=== PATIENT | male | born 1950 | race Caucasian/White ===

== ENCOUNTER → 2023-12-25 08:58 | Outpatient (REF) | payer MEDICARE, SELFPAY ==
[2023-12-25 12:53] LABS: HDL Cholesterol 41 mg/dl; LDL Cholesterol, Calculated 51 mg/dl; Total Cholesterol 120 mg/dl (50-199); Triglyceride 140 mg/dl (10-149); Very Low Density Lipoprotein 28 mg/dl (0-30)
[2023-12-25 17:52] LABS: Microalbumin, Random Urine 7.5 mg/dl (0.6-1.7); Microalbumin/creatinine Ratio 87.5 mg/g
== END ==
LOC: HWLAB 08:58
PROVIDERS: ATTENDING PHYSICIAN Internal Medicine
DX: Z23 Encounter for immunization (principal); E11.3293 Type 2 diabetes mellitus with mild nonproliferative diabetic retinopathy without macular edema, bilateral; E11.42 Type 2 diabetes mellitus with diabetic polyneuropathy; I25.10 Atherosclerotic heart disease of native coronary artery without angina pectoris; Z95.5 Presence of coronary angioplasty implant and graft; I10 Essential (primary) hypertension; E78.2 Mixed hyperlipidemia; Z12.5 Encounter for screening for malignant neoplasm of prostate
CPT/HCPCS: 36415; 80061; 82043; 82570; 83036; G0103

== ENCOUNTER 2024-06-02 15:37 | Inpatient (IN) | payer MEDICARE, SELFPAY ==
[2024-06-02] VITALS (12 sets, daily range): BP systolic 102–136; BP diastolic 49–72; BMI 29.2; BMI 28.4
--- NOTE | 2024-06-02 11:54 | ED.GENMED ---
History of Present Illness
General
Chief Complaint: Abdominal Pain
Source: patient and spouse
Exam Limitations: none
Time Seen by Provider: 06/02/24 11:46
History of Present Illness
History of Present Illness:
74yoM with a history of coronary artery disease s/p PCI, hypertension, hyperlipidemia, and type 2 diabetes presenting with his for evaluation of chest and abdominal pain. Patient has been having intermittent right lower quadrant abdominal pain
for the past several weeks. He started to have pain in his right upper chest region several days ago. The pain seems to be worse at nighttime. Pain intermittently will radiate down the right side of his torso. Patient also reports decreased
appetite and early satiety. He has not been getting out of bed much due to his symptoms. He has lost about 20 pounds within the past month. No fevers, dysuria, diarrhea, shortness of breath.
Past History
Past History
ED Past Medical History: HTN, Hypercholesterolemia and NIDDM
ED Past Surgical History: Appendectomy, Orthopedic and Tonsilectomy
Social History
Tobacco: Non-smoker
Living: with family
Phy Exam
General Physical Exam
General Presentation: no apparent distress
General age: appears stated age
General Skin: warm and dry
General Mental: alert
Cardiovascular Exam
Cardiovascular Exam: regular rate/rhythm
Pulmonary Exam
Pulmonary Exam: lungs clear, no respiratory distress and no crackles
Gastrointestinal Exam
Gastrointestinal Exam: non tender, soft and non distended
Fritz Coma Scale
Eye Opening: Spontaneous
Verbal Response: Oriented
Motor Response: Obeys Commands
GCS Total Score: 15
Skin Exam
Skin Exam: normal color and warm/dry
Psychiatric Exam
Psychiatric Exam: normal mood/affect
Course
Orders/Labs/Results
Orders:
Orders
06/02/24 11:24
ECG [Electrocardiogram (*1)] Urgent
Reason for Study: Other
Other Reason for Exam: abdominal pain
EKG- Treatment ONCE
06/02/24 11:54
CT Chest/abd/pel W Iv Cont Urgent
Comment:
Reason For Exam: R sided chest/abd pain, weight loss
06/02/24 11:56
Complete Blood Count/With Diff Urgent
Comprehensive Metabolic Panel Urgent
Lipase Urgent
Troponin I Urgent
06/02/24 15:24
Admit/Transfer Patient As Directed
Co-Sign Provider:
Level of Care: Inpatient admission
Assign to:: Medical/Surgical
Physician / Group: yesenia
Diagnosis: pancreatic cancer
Reason for Hospitalization: pancreatic cancer
Expected length of stay greater than two midnights?: Yes
ELOS- Estimated Length of Stay in days: 2
I certify the patient meets the requirements for IP care: Yes
PRN Pain Medication Management As Directed
May give lesser potent ordered pain med per pt: Yes
preference::
Protocol:: Medication orders for pain may be administered in a
manner that supports deferring to patient preference
when the pt is:
- Requesting an ordered lesser potent pain medication.
Least to most potent pain medications are defined
as: acetaminophen < NSAID < tramadol < opioids
(morphine, oxycodone, hydromorphone).
- Requesting a lesser dose of the same medication IF
ORDERED.
- Requesting a less intrusive route of administration
if both routes are prescribed by the provider (PO <
IV).
06/02/24 15:25
Code Status As Directed
Resuscitation Status: Full Code
Abnormal Lab Results
06/02/24
11:56
MCHC 32.4 L g/dL
(33.0-37.0)
RDW 15.0 H %
(11.5-14.5)
Abs Immat Gran (auto) 0.1 H 10^3/uL
(0-0.05)
Absolute Neuts (auto) 7.7 H 10^3/uL
(1.4-6.5)
Absolute Monos (auto) 1.4 H 10^3/uL
(0.1-0.6)
Immature Gran % 0.6 H %
(0-0.5)
Lymphocytes % 12.5 L %
(20.5-51.1)
Monocytes % 13.3 H %
(1.7-9.3)
BUN 28 H mg/dl
(9-20)
Glucose 143 H mg/dl
(70-99)
Total Bilirubin 1.7 H mg/dl
(0.2-1.3)
AST 182 H U/L
(17-59)
ALT 143 H U/L
(0-50)
Alkaline Phosphatase 550 H U/L
(38-126)
06/02/24 11:56
06/02/24 11:56
Vital Signs
Initial and Last Documented VS:
Initial Vital Signs
Temp Pulse Resp BP Pulse Ox
97.6 F 79 18 107/62 98
06/02/24 11:18 06/02/24 11:18 06/02/24 11:18 06/02/24 11:18 06/02/24 11:18
Last Documented Vital Signs
Temp Pulse Resp BP Pulse Ox
97.6 F 67 19 118/63 96
06/02/24 11:18 06/02/24 14:12 06/02/24 14:12 06/02/24 14:12 06/02/24 14:12
MDM/Problems Addressed
Differential Diagnosis Includes:
74yoM here with R sided chest/abd pain. Also having decreased appetite, early satiety, and weight loss. He is afebrile and hemodynamically stable. He is well appearing in no distress. No reproducible abdominal tenderness on exam. Differential
diagnosis includes but is not limited to: malignancy, biliary colic, appendicitis, pneumonia
Initial ED plan: Check abdominal labs, troponin/EKG, and CT CAP.
*EKG
Interpreted by ED Provider?: Yes
EKG Intrepretation Date: 06/02/24
Heart Rate: 73
Rate: normal
Rhythm: sinus
[place]: normal axis
Interval: normal interval
QRS Pattern: normal QRS
Ischemia: no ischemia
*Critical Care Note
Total Time (30-74mins, 75-104mins- exclusive of procedures): Not Applicable
Update Note
Update Note:
Labs reveal a new transaminitis. CT unfortunately shows findings concerning for pancreatic cancer with liver metastases. There is also a splenic infarct noted. Oncology notified of patient and he was admitted for further evaluation and management.
ED Attending Note
-
Portions of this chart may have been created with voice recognition software.� Occasional wrong word or��sound alike� substitutions may have occurred due to the inherent limitations of voice recognition software.
Discharge Plan
Departure
Patient Disposition: Admit
Date of Disposition: 06/02/24
Time of Disposition: 15:13
Presentation/result/management discussed w/ accepting MD/DO: Hospitalist
Discharge Problem:
Pancreatic mass, Splenic infarct
Interventions
Interventions:
*Risk Screen - Suicide Last Done: 06/02/24 11:51
*General Assessment Last Done: 06/02/24 11:51
*Neglect/Abuse Screening Last Done: 06/02/24 11:51
ED- Fall Risk Assessment Last Done: 06/02/24 11:51
*ED COVID-19 Vaccine History Last Done: 06/02/24 11:51
CD-Zgtbyt-Bhnrwrjvlk Assessment Last Done: 06/02/24 11:51
[2024-06-02 12:16] LABS: % Basophils 0.6 % (0-2); % Eosinophils 1.8 % (0-6); % Immature Granulocytes 0.6 % (0-0.5); % Lymphocytes 12.5 % (20.5-51.1); % Monocytes 13.3 % (1.7-9.3); % Neutrophils 71.2 % (42.2-75.2); Absolute Basophils 0.1 10^3/uL (0-0.2); Absolute Eosinophils 0.2 10^3/uL (0-0.7); Absolute Immature Granulocytes 0.1 10^3/uL (0-0.05); Absolute Lymphocytes 1.4 10^3/uL (1.2-3.4); Absolute Monocytes 1.4 10^3/uL (0.1-0.6); Absolute Neutrophils 7.7 10^3/uL (1.4-6.5); Hematocrit 43.5 % (39.0-52.0); Hemoglobin 14.1 g/dL (13.0-18.0); Mean Corp Hgb Conc. 32.4 g/dL (33.0-37.0); Mean Corpuscular Hgb 28.1 pg (27.0-31.0); Mean Corpuscular Volume 86.8 fL (80.0-94.0); Mean Platelet Volume 9.3 fL (7.4-10.4); Nucleated Red Blood Cells % 0 % (-); Platelet Count 313 10^3/uL (130-400); Red Blood Cell Count 5.01 10^6/uL (4.70-6.10); White Blood Cell Count 10.8 10^3/uL (4.8-10.8)
[2024-06-02 12:24] LABS: ALT (SGPT) 143 U/L (0-50); AST (SGOT) 182 U/L (17-59); Albumin 3.6 g/dl (3.5-5.0); Alkaline Phosphatase 550 U/L (38-126); Blood Urea Nitrogen 28 mg/dl (9-20); Calcium 9.6 mg/dl (8.4-10.2); Carbon Dioxide 26 mmol/L (22-30); Chloride 101 mmol/L (98-107); Estimated Creatinine Clearance 67 ml/min; Glucose 143 mg/dl (70-99); Lipase 218 U/L (23-300); Potassium 4.4 mmol/L (3.5-5.1); Sodium 139 mmol/L (135-145); Total Bilirubin 1.7 mg/dl (0.2-1.3); Total Protein 6.6 g/dl (6.3-8.2); eGFR > 60.00
[2024-06-02 12:35] LABS: Troponin I < 0.012 ng/ml
--- NOTE | 2024-06-02 14:58 | EDRN ---
provider currently at the pts bedside speaking with the pt and the pts
--- NOTE | 2024-06-02 15:26 | HPS.HSE ---
Family Physician
-
Family Physician: Devendra Pitts
Chief Complaint
-
abdomen/chest pain
History of Present Illness
74-year-old male with past medical history of CAD status post PCI, hypertension, hyperlipidemia, type 2 diabetes, right staghorn renal calculus presenting for chest and abdominal pain. He has been having intermittent throbbing right lower quadrant
pain for several weeks and right upper chest pain for several weeks particularly worse at night. He has had decreased appetite, early satiety and 20 pounds weight loss in a month. He denies any pain currently. Denies any fevers or chills. Denies
any shortness of breath.
He drinks alcohol very rarely. He never smoked.
His father had lung cancer.
Medical History
Past Medical History
Past Medical History: Reports Other (CAD status post PCI, hypertension, hyperlipidemia, type 2 diabetes, right staghorn renal calculus )
Past Surgical History: Reports None
Social History
Tobacco: Non-smoker
Alcohol: Occasional
Drug: None
Family History
Family History: Not pertinent
Allergies / Home Medications
Allergies reflects when Allergies were last updated in [employer].
Home Medications with original date entered in [employer]
Allergy/Medication List:
Allergies
Allergy/AdvReac Type Severity Reaction Status Date / Time
TONNY Inhibitors Allergy Cough Verified 06/02/24 11:22
Home Medications
finasteride 5 mg tablet 5 mg PO DAILY 04/02/14
multivitamin with minerals-ferrous sulfate 4.5 mg iron tablet (One Daily Multivitamins with Minerals) 1 tab PO DAILY 04/02/14
simvastatin 20 mg tablet 20 mg PO DAILY 04/02/14
sitagliptin phosphate 100 mg tablet (Januvia) 100 mg PO DAILY 04/02/14
tamsulosin 0.4 mg capsule 0.4 mg PO DAILY 04/02/14
aspirin 81 mg tablet,delayed release 81 mg PO DAILY #0 tabs 04/04/14
metformin 1,000 mg tablet 1,000 mg PO BID ##0 04/04/14
metoprolol tartrate 25 mg tablet 25 mg PO BID ##180 04/04/14
nitroglycerin 0.4 mg sublingual tablet 0.4 mg sublingual [id number] PRN chest pain #30 tabs 04/04/14
ticagrelor 90 mg tablet (Brilinta) 90 mg PO BID ##60 04/04/14
insulin lispro 100 unit/mL subcutaneous pen (Humalog KwikPen (U-100) Insulin) 8 units SC AC 06/25/18
tramadol 50 mg tablet 50 mg PO [id number] PRN severe pain #21 tabs 07/02/18
Review of Systems
-
History Source: Patient
A 12 point ROS was completed and negative except as noted: Yes
Constitutional: Reports No Symptoms
EENT: Reports No Symptoms
Respiratory: Reports No Symptoms
Cardiac: Reports No Symptoms
Abdomen/GI: Reports No Symptoms
: Reports No Symptoms
Musculoskeletal: Reports No Symptoms
Skin: Reports No Symptoms
Neurological: Reports No Symptoms
Endocrine: Reports No Symptoms
Hematologic/Lymphatic: Reports No Symptoms
Psych: Reports No Symptoms
Physical Exam
Vital Signs
Vital Signs
Temp Pulse Resp BP Pulse Ox
97.6 F 67 19 118/63 96
06/02/24 11:18 06/02/24 14:12 06/02/24 14:12 06/02/24 14:12 06/02/24 14:12
Physical Exam
General: Well Developed, Well Nourished and No Apparent Distress
HEENT: NormoCephalic, Moist mucous membranes and Atraumatic
Respiratory: Clear
Cardiac: S1/S2 and Regular Rhythm; No Murmur or Rub
GI: Soft, Non Tender, Non Distended and Normal Bowel Sounds; No Organomegaly
Rectal: Deferred by Provider
Musculoskeletal: No Clubbing, No Cyanosis and No Edema
Skin: No Rash
Neuro: Nonfocal/grossly intact
Laboratory Results
-
06/02/24 11:56
06/02/24 11:56
Laboratory Results
Total Bilirubin 1.7 mg/dl (0.2-1.3) H 06/02/24 11:56
AST 182 U/L (17-59) H 06/02/24 11:56
ALT 143 U/L (0-50) H 06/02/24 11:56
Alkaline Phosphatase 550 U/L (38-126) H 06/02/24 11:56
Troponin I < 0.012 ng/ml 06/02/24 11:56
Lipase 218 U/L (23-300) 06/02/24 11:56
Data Reviewed
-
Lab Data: Labs Reviewed by me
Old Records: Reviewed
Impression/Plan
-
IMPRESSION:
PLAN:
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
# Transaminitis
# Splenic infarct
-Will likely require IR biopsy
-Oncology consulted
CAD status post stents 10 years ago
-Continue aspirin
-Brilinta was recently stopped
Essential hypertension
-Continue metoprolol
Type 2 diabetes
-Hold metformin, Januvia
-Insulin sliding scale
Hyperlipidemia
-Continue statin
History of right staghorn renal calculus
BPH
-Continue tamsulosin, finasteride
Full code
DVT prophylaxis�heparin
Regular diet
--- NOTE | 2024-06-02 17:53 | EDRN ---
this RN called the receiving unit and notified them that paper report was going to be tubed up
[2024-06-02] MEDS: LOPRESSOR 25 MG PO (19:41)
[2024-06-02] MEDS: HEPARIN 5000 UNITS SC (19:41)
[2024-06-02] MEDS: LIPITOR 40 MG PO (21:30)
[2024-06-02 22:13] LABS: Glucose - Point of Care 163 mg/dl (70-99)
[2024-06-03 05:43] LABS: % Basophils 0.7 % (0-2); % Eosinophils 2.6 % (0-6); % Immature Granulocytes 0.4 % (0-0.5); % Lymphocytes 14.1 % (20.5-51.1); % Monocytes 13.3 % (1.7-9.3); % Neutrophils 68.9 % (42.2-75.2); Absolute Basophils 0.1 10^3/uL (0-0.2); Absolute Eosinophils 0.2 10^3/uL (0-0.7); Absolute Lymphocytes 1.2 10^3/uL (1.2-3.4); Absolute Monocytes 1.1 10^3/uL (0.1-0.6); Absolute Neutrophils 5.8 10^3/uL (1.4-6.5); Hematocrit 41.4 % (39.0-52.0); Hemoglobin 13.8 g/dL (13.0-18.0); Mean Corp Hgb Conc. 33.3 g/dL (33.0-37.0); Mean Corpuscular Hgb 28.7 pg (27.0-31.0); Mean Corpuscular Volume 86.1 fL (80.0-94.0); Mean Platelet Volume 9.5 fL (7.4-10.4); Nucleated Red Blood Cells % 0 % (-); Platelet Count 285 10^3/uL (130-400); Red Blood Cell Count 4.81 10^6/uL (4.70-6.10); Red Cell Dist. Width 14.7 % (11.5-14.5); White Blood Cell Count 8.4 10^3/uL (4.8-10.8)
[2024-06-03 06:02] LABS: ALT (SGPT) 156 U/L (0-50); AST (SGOT) 181 U/L (17-59); Albumin 3.4 g/dl (3.5-5.0); Alkaline Phosphatase 594 U/L (38-126); Blood Urea Nitrogen 27 mg/dl (9-20); Calcium 9.8 mg/dl (8.4-10.2); Carbon Dioxide 24 mmol/L (22-30); Chloride 102 mmol/L (98-107); Estimated Creatinine Clearance 67 ml/min; Glucose 142 mg/dl (70-99); Potassium 4.9 mmol/L (3.5-5.1); Sodium 143 mmol/L (135-145); Total Bilirubin 1.8 mg/dl (0.2-1.3); Total Protein 6.5 g/dl (6.3-8.2); eGFR > 60.00
[2024-06-03 07:00] VITALS: BP 108/64
[2024-06-03 07:40] LABS: Glucose - Point of Care 148 mg/dl (70-99)
[2024-06-03] MEDS: COZAAR 25 MG PO (08:19)
[2024-06-03] MEDS: LOPRESSOR 25 MG PO ×2 (08:19→20:37)
[2024-06-03] MEDS: THERAGRAN 1 TABLET PO (08:19)
[2024-06-03] MEDS: ASPIR LOW (ENTERIC COATED) 81 MG PO (08:19)
[2024-06-03] MEDS: NOVOLOG FLEXPEN-LOW RESISTANCE SC (08:19)
[2024-06-03] MEDS: HEPARIN 5000 UNITS SC ×2 (08:19→20:38)
[2024-06-03 09:28] LABS: Glycohemoglobin (HgbA1c) 7.2 % (4.0-5.6)
--- NOTE | 2024-06-03 09:35 | W.PN.HOSP.TC ---
Today's Communication/Plan
-
Oncology consult
IRAD consult
GI consult
Assessment / Plan
Assessment / Plan
Gen-AAOx3, NAD
HEENT-NC, AT, anicteric, clear oral mm
Neck-supple
CV-reg, no M, +S1/S2
Lungs-clear B/L
Abd-soft, NT, ND
Ext-no edema
Musculoskeletal-no cyanosis, clubbing
Skin-warm and dry
Neuro-grossly non-focal
Psych-calm, cooperative
Pancreatic mass -CT scan confirms a mass in the pancreatic tail (4.2x3.4x2.5cm) with multiple hepatic lesions concerning for metastatic pancreatic cancer. Splenic infarct noted.
Will need diagnostic biopsy. Await oncology input. He already had breakfast. This is a new diagnosis for him.
IRAD consult for biopsy.
CT also mentions intrahepatic ductal dilation in the right lobe of the liver, possibly due to intrahepatic obstruction. GI will be consulted. Elevated bilirubin, transaminases, alkaline phosphatase noted.
CAD -with history of stenting. Continue medical therapy.
Essential hypertension -stable.
DM2 without hyperglycemia - on Lantus 25 units BID, Humalog 15 units AC, metformin 1000 mg twice daily, Jardiance 25 mg daily at home. Glucose 142 this morning. Hemoglobin A1c 7.2%.
Currently in the hospital he is getting glargine 25 units twice daily and aspart low resistance corrective scale.
Hyperlipidemia -atorvastatin.
History of staghorn nephrolithiasis
BPH
full code
Anticipated Discharge: > 48 hours
Subjective/Interval History
-
Date of Service: June 03, 2024
Patient seen and examined. Complaining of right lateral chest pain.
Objective Data
-
Labs:
Laboratory Results
06/03/24
04:56
WBC 8.4
Hgb 13.8
Hct 41.4
Plt Count 285
Sodium 143
Potassium 4.9
Chloride 102
Carbon Dioxide 24
BUN 27 H
Creatinine 1.0
Glucose 142 H
Calcium 9.8
Total Bilirubin 1.8 H
AST 181 H
ALT 156 H
Alkaline Phosphatase 594 H
Vital Signs:
Vital Signs
Temp Pulse Resp BP Pulse Ox
98.0 F 70 18 108/64 97
06/03/24 07:00 06/03/24 07:00 06/03/24 07:00 06/03/24 07:00 06/03/24 07:00
I&O
06/02/24 06/03/24 06/04/24
06:59 06:59 06:59
Intake Total 480 / 480
Balance 480 / 480
Review of Systems
-
History Source: Patient
All other systems: Reviewed and negative
--- NOTE | 2024-06-03 10:01 | CON.ONC ---
Documented by User: Marcos De La Rosa DO, Resident 06/03/24 11:37
Impression
Impression
74-year-old male with newfound pancreatic tail mass and potential metastatic lesions in the liver.
Plan
Plan
Newfound pancreatic tail mass and hepatic lesions on CT. Pending GI/ IR consult and biopsy. Input appreciated
CEA, CA 19-9 pending
Consideration of DC if patient has workup appointments confirmed for staging
Follow up outpatient with oncology once path is back
Continue management per primary medical team
Patient History
History of Present Illness
74-year-old male with past medical history of CAD post PCI, hypertension, hyperlipidemia, type 2 diabetes and right staghorn renal calculus, now presenting with newfound pancreatic tail mass after having chest/abdominal pain, worse at night,
decreased appetite and 20 pound weight loss in last month. CT abdomen pelvis on 06/02 shows mass in the pancreatic tail (4.2x3.4x2.5cm) and multiple hepatic lesions, concerning for metastatic pancreatic cancer. Patient also has intrahepatic ductal
dilation in the right lobe of the liver, possibly due to intrahepatic obstruction.
Today patient reports no pain at the moment. He states he continues to have reduced appetite and weight loss. He notes no chest pain, nausea, vomiting, constipation, blood in stool or difficulty with having a bowel movement or urinating. He has
no personal history of cancer. Patient was on Brilinta, discontinued 3 days ago per PCP. Discussions had today regarding next steps pending staging and biopsy results.
Past-Medical/Surgical History
CAD status post PCI, hypertension, hyperlipidemia, type 2 diabetes, right staghorn renal calculus
Patient Medication
�Medication �Instructions �Recorded �Confirmed �Last Taken �Type
finasteride 5 mg tablet 5 mg PO QPM urinary issue 04/02/14 06/02/24 06/01/24 History
10 mg
multivitamin with minerals-ferrous 1 tab PO DAILY supplement 04/02/14 06/02/24 06/01/24 History
sulfate 4.5 mg iron tablet (One
Daily Multivitamins with Minerals)
tamsulosin 0.4 mg capsule 0.4 mg PO QPM urinary issue 04/02/14 06/02/24 06/01/24 History
0.8mg
nitroglycerin 0.4 mg sublingual 0.4 mg sublingual [id number] PRN 04/04/14 06/02/24 Unknown Rx
tablet chest pain #30 tabs
insulin lispro 100 unit/mL 15 units SC AC diabetes 06/25/18 06/02/24 06/02/24 History
subcutaneous pen (Humalog KwikPen
(U-100) Insulin)
aspirin 81 mg tablet,delayed 81 mg PO DAILY Blood Clot 06/02/24 06/02/24 06/02/24 History
release Prevention/Tx
atorvastatin 40 mg tablet (Lipitor) 40 mg PO HS High Cholesterol 06/02/24 06/02/24 06/01/24 History
empagliflozin 25 mg tablet 25 mg PO DAILY diabetes 06/02/24 06/02/24 06/01/24 History
(Jardiance) 50 mg
insulin glargine 100 unit/mL 25 unit SC BID@1200,1900 diabetes 06/02/24 06/02/24 06/01/24 History
subcutaneous solution (Lantus
U-100 Insulin)
losartan 25 mg tablet 25 mg PO DAILY Blood Pressure 06/02/24 06/02/24 06/01/24 History
50 mg
metformin 1,000 mg tablet 1,000 mg PO BID diabetes 06/02/24 06/02/24 06/02/24 History
metoprolol tartrate 25 mg tablet 25 mg PO BID blood pressure 06/02/24 06/02/24 06/02/24 History
Active Medications
Generic Name Dose Route Start Last Admin
Trade Name Freq PRN Reason Stop Dose Admin
Aspirin 81 mg 06/03/24 08:00 06/03/24 08:19
Aspirin 81 Mg (Enteric Coated) Tablet PO 07/01/24 07:59 81 mg
DAILY CLARI Administration
Atorvastatin Calcium 40 mg 06/02/24 22:00 06/02/24 21:30
Atorvastatin (Lipitor) 40 Mg Tablet PO 06/30/24 21:59 40 mg
HS CLARI Administration
Dextrose 12.5 grams 06/02/24 19:04
Dextrose 50% (0.5 Grams/Ml) 50 Ml Syringe IV 06/30/24 19:03
[id number] PRN
hypoglycemia
Protocol
Finasteride 5 mg 06/03/24 18:00
Finasteride 5 Mg Tablet PO 07/01/24 17:59
QPM CLARI
Glucagon 1 mg 06/02/24 19:04
Glucagon 1 Mg Vial IM 06/30/24 19:03
PRN PRN
hypoglycemia
Protocol
Heparin Sodium 5,000 units 06/02/24 20:00 06/03/24 08:19
Heparin 5,000 Units/Ml 1 Ml Vial SC 06/30/24 19:59 5,000 units
Q12 CLARI Administration
Insulin Glargine 25 units/ 0.25 mls @ 0 mls/hr 06/03/24 12:00
Device SC 07/01/24 11:59
BID@1200,1900 CLARI
As Directed
Insulin Aspart 0 units 06/03/24 07:30 06/03/24 08:19
Insulin Aspart Low Resistance 300 Units/3 Ml Pen.Injctr SC 07/01/24 07:29 Not Given
AC CLARI
Protocol
Losartan Potassium 25 mg 06/03/24 08:00 06/03/24 08:19
Losartan 25 Mg Tablet PO 07/01/24 07:59 25 mg
DAILY CLARI Administration
Metoprolol Tartrate 25 mg 06/02/24 20:00 06/03/24 08:19
Metoprolol 25 Mg Regular Release Tablet PO 06/30/24 19:59 25 mg
BID CLARI Administration
Multivitamins Therapeutic 1 tablet 06/03/24 08:00 06/03/24 08:19
Multivitamin Tablet PO 07/01/24 07:59 1 tablet
DAILY CLARI Administration
Nitroglycerin 0.4 mg 06/02/24 19:03
Nitroglycerin 0.4 Mg Sl Tablet SL 06/30/24 19:02
[id number] PRN
chest pain
Sodium Chloride 0 flush 06/02/24 19:00
Sodium Chloride 0.9% (Flush) Syringe IV 06/30/24 18:59
PER PROTOCOL LCARI
Tamsulosin HCl 0.4 mg 06/03/24 18:00
Tamsulosin 0.4 Mg Capsule PO 07/01/24 17:59
QPM CLARI
Review of Systems
-
History Source: Patient
Constitutional: Reports Weight Loss and No Appetite
EENT: Reports No Symptoms
Respiratory: Reports No Symptoms
GI: Reports Abdominal Pain
: Reports No Symptoms
Neuro: Reports No Symptoms
Psych: Reports No Symptoms
Physical Exam
-
General: Well Developed, Well Nourished, No Apparent Distress, Comfortable and Conversant
HEENT: Jaundice
Pulmonary: Clear
GI: Soft
Musculoskeletal: No Clubbing, No Cyanosis and No Edema
Skin: Warm and Dry
Psych: Calm
Labs
Lab Results
WBC 8.4 10^3/uL (4.8-10.8) 06/03/24 04:56
RBC 4.81 10^6/uL (4.70-6.10) 06/03/24 04:56
Hgb 13.8 g/dL (13.0-18.0) 06/03/24 04:56
Hct 41.4 % (39.0-52.0) 06/03/24 04:56
MCV 86.1 fL (80.0-94.0) 06/03/24 04:56
MCH 28.7 pg (27.0-31.0) 06/03/24 04:56
MCHC 33.3 g/dL (33.0-37.0) 06/03/24 04:56
RDW 14.7 % (11.5-14.5) H 06/03/24 04:56
Plt Count 285 10^3/uL (130-400) 06/03/24 04:56
MPV 9.5 fL (7.4-10.4) 06/03/24 04:56
Abs Immat Gran (auto) 0.0 10^3/uL (0-0.05) 06/03/24 04:56
Absolute Neuts (auto) 5.8 10^3/uL (1.4-6.5) 06/03/24 04:56
Absolute Lymphs (auto) 1.2 10^3/uL (1.2-3.4) 06/03/24 04:56
Absolute Monos (auto) 1.1 10^3/uL (0.1-0.6) H 06/03/24 04:56
Absolute Eos (auto) 0.2 10^3/uL (0-0.7) 06/03/24 04:56
Absolute Basos (auto) 0.1 10^3/uL (0-0.2) 06/03/24 04:56
Immature Gran % 0.4 % (0-0.5) 06/03/24 04:56
Neutrophils % 68.9 % (42.2-75.2) 06/03/24 04:56
Lymphocytes % 14.1 % (20.5-51.1) L 06/03/24 04:56
Monocytes % 13.3 % (1.7-9.3) H 06/03/24 04:56
Eosinophils % 2.6 % (0-6) 06/03/24 04:56
Basophils % 0.7 % (0-2) 06/03/24 04:56
Creatinine 1.0 mg/dL (0.7-1.3) 06/03/24 04:56
Vital Signs
Vital Signs
Temp Pulse Resp BP Pulse Ox
98.0 F 70 18 108/64 97
06/03/24 07:00 06/03/24 07:00 06/03/24 07:00 06/03/24 07:00 06/03/24 07:00

Documented by User: Brodie Obrien MD 06/03/24 13:39
Plan
Plan
Newfound pancreatic tail mass and hepatic lesions on CT. Pending GI/ IR consult and biopsy. Input appreciated
CEA, CA 19-9 pending
Consideration of DC if patient has workup appointments confirmed for staging
Follow up outpatient with oncology once path is back
Continue management per primary medical team
Oncology Addendum:
Patient seen and evaluated and agree w/ director medical writing note and plan
-pancreatic mass/ liver lesions/ portocaval serina enlargement - concerning for possible primary pancreaticobiliary malignancy
-for IR guided biopsy of liver lesion - await pathology
-GI following - MRCP ordered
-Ca 19-9 and CEA pending
Will continue to follow with you.
--- NOTE | 2024-06-03 10:10 | CON.GI ---
Addendum entered and electronically signed by Michaela Meza DO 06/03/24 12:31:
The patient was seen and examined by me independently in collaboration with the nurse practitioner.
Past medical history/social history/medications/allergies/family history reviewed.
Lab data and imaging data reviewed.
Sridhar is a 74-year-old male with past medical history of CAD status post PCI, hypertension, hyperlipidemia, diabetes, history of nephrolithiasis admitted with complaints of chest and abdominal pain and an unintentional weight loss of 20 pounds in
the last month. CT abdomen pelvis were obtained upon arrival which demonstrates a 4.2 cm likely malignant mass arising from the tail of the pancreas concerning for pancreatic adenocarcinoma and numerous low-density hepatic lesions throughout the
liver, concerning for metastatic disease. There is intrahepatic ductal dilatation within the right lobe of the liver, which is probably due to intrahepatic obstruction from the largest lesion. The main portal vein and its branches appear patent as
well as the SMV and splenic vein. The hepatic veins are not well-visualized. Top normal lymph nodes in the portacaval region, nonspecific. Small lymph nodes in the region of the gastrohepatic ligament, also nonspecific. A likely benign 2 mm
well-defined peripheral pulmonary nodule.
LFTs: Tbili 1.8, AST 181, ALT 156, Alk phos 594
#New pancreatic mass c/f pancreatic adenocarcinoma w/ hepatic mass
-elevated LFTs-- likely 2/2 intrahepatic cholestasis and obstrutrution of the intrahepatic duct 2/2 largest lesion
-IR also consulted
-recommend MRI/MRCP, tumor markers
-he is not cholangitic requiring urgent decompression nor is his bili too high for potential chemotherapy treatment, but still needs tissue diagnosis
-extensive discussion with patient, patient's , Dr. Bowen and IR-- earliest we are able to perform any procedure is on thursday, as an inpatient with IR. Patient is agreeable to this.
GI will sign off, please call with questions.
Original Note:
Consultation
-
Date/Time Consultation Requested: 06/03/24 4922
Date/Time Consultation Performed: 06/03/24 1015
Requesting Provider: Lawson Marquez DO
Performing Provider: RONNIE James, Elena Meza DO
Reason for Consultation: biliary dilation
Medical History
Chief Complaint / HPI
Chief Complaint: abdominal pain, wt loss
History of Present Illness:
Pt is a 74yo present with hx CAD with prior PCI on Brilinta til 3 weeks ago, HTN, hyperlipidemia, basal cell, melanoma, bladder CA, CVA, DM Type 2, right staghorn renal calculus appe with onset of chest and abdominal pain. He also admits to weight
loss 20 lbs with early satiety last 1-2 months. He describe pain as ache in right sided abdomen that is throbbing. On admission noted with bili 1.7, AST 182, ALT 143, alkphos 550, and Lipase 218. Ct with multiple finding with mass in pancreatic
tail concern for panc adeno CA, multiple hepatic lesions, intrahepatic duct dilation due to lesion right lobe, top normal nodes, renal stone, 2 mm pulm nodule, benign vs metastatic and splenic infarct. Asked to eval for EUS.
At this time patient denies dysphagia, odynophagia, GERD, nausea, vomiting, diarrhea, constipation, blood or black in stools. Hx colonoscopy [address] Dang erythema/erosion in cecum, polyps and hemorrhoids. bx mild acute inflammation,
adenomatous polyps. -- has 2 other colonoscopy
Past Medical History
Past Medical History: CAD, Cancer (basal cell skin CA, bladder CA, melanoma), CVA, HTN, Hypercholesterolemia, NIDDM and Other (right staghorn renal calculus, adenomatous colon polyps with removal of large polyp [place] last 1-2 years )
Past Surgical History: Appendectomy, Cardiac (PCI), Orthopedic (stem cell to right knee ), Tonsilectomy and Urological (TURBT 2011 )
Social History
Tobacco: Non-Smoker
Alcohol: Occasional (rare)
Drug: None
Personal:
Living: With Family
Employment: Retired
Family History
Family History: Other (no family hx colon CA/polyps, no family hx pancreatic or liver issues, father and mother lung CA)
Allergies / Home Medications
Allergy/AdvReac Type Severity Reaction Status Date / Time
TONNY Inhibitors Allergy Cough Verified 06/02/24 11:22
�Medication �Instructions �Recorded
finasteride 5 mg tablet 5 mg PO QPM urinary issue 04/02/14
multivitamin with minerals-ferrous 1 tab PO DAILY supplement 04/02/14
sulfate 4.5 mg iron tablet (One
Daily Multivitamins with Minerals)
tamsulosin 0.4 mg capsule 0.4 mg PO QPM urinary issue 04/02/14
nitroglycerin 0.4 mg sublingual 0.4 mg sublingual [id number] PRN 04/04/14
tablet chest pain #30 tabs
insulin lispro 100 unit/mL 15 units SC AC diabetes 06/25/18
subcutaneous pen (Humalog KwikPen
(U-100) Insulin)
aspirin 81 mg tablet,delayed 81 mg PO DAILY Blood Clot 06/02/24
release Prevention/Tx
atorvastatin 40 mg tablet (Lipitor) 40 mg PO HS High Cholesterol 06/02/24
empagliflozin 25 mg tablet 25 mg PO DAILY diabetes 06/02/24
(Jardiance)
insulin glargine 100 unit/mL 25 unit SC BID@1200,1900 diabetes 06/02/24
subcutaneous solution (Lantus
U-100 Insulin)
losartan 25 mg tablet 25 mg PO DAILY Blood Pressure 06/02/24
metformin 1,000 mg tablet 1,000 mg PO BID diabetes 06/02/24
metoprolol tartrate 25 mg tablet 25 mg PO BID blood pressure 06/02/24
Review of Systems
-
History Source: Patient
Constitutional: Reports Weight Loss (20 lbs )
EENT: Reports No Symptoms
Respiratory: Reports No Symptoms
Cardiac: Reports No Symptoms
Abdomen/GI: Reports Abdominal Pain and Other (early satiety )
: Reports No Symptoms
Musculoskeletal: Reports No Symptoms
Skin: Reports No Symptoms
Neurological: Reports Weakness
Endocrine: Reports No Symptoms
Hematologic/Lymphatic: Reports No Symptoms
Vital Signs
Temp Pulse Resp BP Pulse Ox
98.0 F 70 18 108/64 97
06/03/24 07:00 06/03/24 07:00 06/03/24 07:00 06/03/24 07:00 06/03/24 07:00
Physical Exam
Exam
General: Well Developed, Well Nourished and No Apparent Distress
HEENT: Normocephalic and Anicteric
Respiratory: Clear
Cardiac: Regular Rhythm
GI: Soft, Non Tender and Non Distended
Musculoskeletal: No Clubbing and No Cyanosis
Skin: Warm and Dry
Neuro: Awake, Alert and AO x 3
Psych: Calm
Results
WBC 8.4 10^3/uL (4.8-10.8) 06/03/24 04:56
Hgb 13.8 g/dL (13.0-18.0) 06/03/24 04:56
Hct 41.4 % (39.0-52.0) 06/03/24 04:56
MCV 86.1 fL (80.0-94.0) 06/03/24 04:56
Plt Count 285 10^3/uL (130-400) 06/03/24 04:56
Absolute Neuts (auto) 5.8 10^3/uL (1.4-6.5) 06/03/24 04:56
Sodium 143 mmol/L (135-145) 06/03/24 04:56
Potassium 4.9 mmol/L (3.5-5.1) 06/03/24 04:56
Chloride 102 mmol/L (98-107) 06/03/24 04:56
Carbon Dioxide 24 mmol/L (22-30) 06/03/24 04:56
BUN 27 mg/dl (9-20) H 06/03/24 04:56
Creatinine 1.0 mg/dL (0.7-1.3) 06/03/24 04:56
Calcium 9.8 mg/dl (8.4-10.2) 06/03/24 04:56
Total Bilirubin 1.8 mg/dl (0.2-1.3) H 06/03/24 04:56
AST 181 U/L (17-59) H 06/03/24 04:56
ALT 156 U/L (0-50) H 06/03/24 04:56
Alkaline Phosphatase 594 U/L (38-126) H 06/03/24 04:56
Lipase 218 U/L (23-300) 06/02/24 11:56
Diagnostic Image Results:
CT Chest/abd/pel W Iv Cont
IMPRESSION: A mass arises in the pancreatic tail, which very likely represents pancreatic adenocarcinoma.
Multiple hepatic lesions which very likely represent hepatic metastatic disease. There is probably intrahepatic bile duct dilation due to a lesion within the right lobe.
Top normal size lymph nodes in the portacaval region, with prominent but not enlarged lymph nodes in the gastrohepatic ligament. These are nonspecific, statistically probably slightly more likely to be inflammatory rather than neoplastic.
2 mm nephrolith within the lower pole of the right kidney.
2 mm well-defined peripheral pulmonary nodule in the lateral aspect of the left upper lobe as described. This is most likely a benign pulmonary nodule, although a small metastatic lesion is also possible. Continued follow-up advised.
Splenic infarct, seen as a wedge-shaped region of decreased enhancement on portal venous phase images.
Dense coronary artery calcifications. Please correlate with symptoms of and risk factors for coronary artery disease, with further workup as clinically appropriate.
Trace amount of posterior right pleural fluid.
Prior GI Procedures:
EGD:none
Colonoscopy: Hx colonoscopy [address] Dang erythema/erosion in cecum, polyps and hemorrhoids. bx mild acute inflammation, adenomatous polyps.
colonoscopy x 2 [facility] last 1 1/2 year with polyps and returned for removal of large polyp
Assessment / Plan
-
Pt is a 74yo present with hx CAD with prior PCI on Brilinta til 3 weeks ago, HTN, hyperlipidemia, DM Type 2, basal cell, melanoma, bladder CA, right staghorn renal calculus, appe with onset of chest and abdominal pain. He also admits to weight loss
20 lbs with early satiety last 1-2 months. He describe pain as ache in right sided abdomen that is throbbing. On admission noted with bili 1.7, AST 182, ALT 143, alkphos 550, and Lipase 218. Ct with multiple finding with mass in pancreatic tail
concern for panc adeno CA, multiple hepatic lesions, intrahepatic duct dilation due to lesion right lobe, top normal nodes, renal stone, 2 mm pulm nodule, benign vs metastatic and splenic infarct. Asked to eval for EUS.
-wt loss/early satiety/abdominal pain
-Ct concerning for pancreatic adeno CA with mets
-CAD with prior PCI with Brilinta last 3 weeks ago
-increased LFT's
-forgetfulness in exam
other med problems:
-hx colon polyp including large polyp resected last 1-2 years at [facility]
-DM
-basal cell ca
-melanoma
-bladder CA- TURBT 2011
- right staghorn renal calculus
-appe
-BPH
PLAN:etiology of wt loss, pain and early satiety with concern for metastatic disease
I reviewed imaging with Dr. Bowen would be best for liver biopsy first
will review with IR for timing unable to do today --IP vs OP
await oncology input
will check MRI with MRCP to further define anatomy
add AFP, Ca19-9, CEA and INR
remains on ADA diet
last Brilinta 3 weeks ago
-
-
Thank you for consultation and allowing me to participate in the patient's care. Please call the workers' compensation hearings officer GI physician during the after hours with any questions or concerns.
[2024-06-03 12:10] LABS: Glucose - Point of Care 190 mg/dl (70-99)
[2024-06-03 12:33] LABS: INR 1.18; PT 14.9 Sec (11.4-14.6)
--- NOTE | 2024-06-03 12:47 | CM ---
Patient seen bedside with , initial assessment completed. Patient resides with in a ranch style home, one step to enter through [facility]. Patient denies DME, reports VN and outpatient PT in the past (2018). Patient confirms PCP Devendra Pitts,
pharmacy [facility] in [place], confirms prescription coverage. Patient denies any needs from CM at this time. CM will continue to follow for all discharge planning needs.
Plan; home no needs likely.
[2024-06-03 13:08] LABS: CEA 62.8 ng/ml
[2024-06-03] MEDS: NOVOLOG FLEXPEN-LOW RESISTANCE 1 UNITS SC (13:17)
[2024-06-03] MEDS: LANTUS 0.25 UNITS SC ×2 (13:18→20:38)
[2024-06-03 14:00] LABS: AFP Male/Tumor Marker 1.37 ng/ml
[2024-06-03 14:50] VITALS: BMI 28.4
[2024-06-03 16:12] VITALS: BP 132/72
[2024-06-03 16:12] LABS: Glucose - Point of Care 202 mg/dl (70-99)
[2024-06-03] MEDS: FLOMAX 0.4 MG PO (17:10)
[2024-06-03] MEDS: PROSCAR 5 MG PO (17:10)
[2024-06-03] MEDS: NOVOLOG FLEXPEN-LOW RESISTANCE 2 UNITS SC (17:10)
[2024-06-03] MEDS: LIPITOR 40 MG PO (20:36)
[2024-06-03 23:00] VITALS: BP 119/68
[2024-06-03 23:26] LABS: Glucose - Point of Care 176 mg/dl (70-99)
[2024-06-04 06:17] LABS: ALT (SGPT) 155 U/L (0-50); AST (SGOT) 181 U/L (17-59); Albumin 3.3 g/dl (3.5-5.0); Alkaline Phosphatase 599 U/L (38-126); Blood Urea Nitrogen 27 mg/dl (9-20); Calcium 9.6 mg/dl (8.4-10.2); Carbon Dioxide 26 mmol/L (22-30); Chloride 103 mmol/L (98-107); Estimated Creatinine Clearance 61 ml/min; Glucose 150 mg/dl (70-99); Potassium 4.8 mmol/L (3.5-5.1); Sodium 142 mmol/L (135-145); Total Bilirubin 1.7 mg/dl (0.2-1.3); Total Protein 6.3 g/dl (6.3-8.2); eGFR > 60.00
[2024-06-04 07:00] VITALS: BP 125/63
[2024-06-04 07:44] LABS: Glucose - Point of Care 134 mg/dl (70-99)
[2024-06-04] MEDS: NOVOLOG FLEXPEN-LOW RESISTANCE SC ×2 (08:14→14:15)
[2024-06-04] MEDS: ASPIR LOW (ENTERIC COATED) 81 MG PO (08:43)
[2024-06-04] MEDS: LOPRESSOR 25 MG PO ×2 (08:43→21:46)
[2024-06-04] MEDS: COZAAR 25 MG PO (08:43)
[2024-06-04] MEDS: THERAGRAN 1 TABLET PO (08:43)
[2024-06-04] MEDS: HEPARIN 5000 UNITS SC ×2 (08:44→21:46)
[2024-06-04] MEDS: TYLENOL 650 MG PO (10:44)
--- NOTE | 2024-06-04 11:03 | W.PN.HOSP.TC ---
Today's Communication/Plan
-
Continue current care, await MRCP
Assessment / Plan
Assessment / Plan
Gen-AAOx3, NAD
HEENT-NC, AT, anicteric, clear oral mm
Neck-supple
CV-reg, no M, +S1/S2
Lungs-clear B/L
Abd-soft, NT, ND
Ext-no edema
Musculoskeletal-no cyanosis, clubbing
Skin-warm and dry
Neuro-grossly non-focal
Psych-calm, cooperative
Pancreatic mass -CT scan confirms a mass in the pancreatic tail (4.2x3.4x2.5cm) with multiple hepatic lesions concerning for metastatic pancreatic cancer. Splenic infarct noted.
Oncology input noted. GI input noted.
IRAD consult, plan for liver biopsy on Thursday.
CT also mentions intrahepatic ductal dilation in the right lobe of the liver, possibly due to intrahepatic obstruction. Elevated bilirubin, transaminases, alkaline phosphatase noted.
Awaiting MRCP. GI service signed off.
CAD -with history of stenting. Continue medical therapy.
Essential hypertension -stable.
DM2 without hyperglycemia - on Lantus 25 units BID, Humalog 15 units AC, metformin 1000 mg twice daily, Jardiance 25 mg daily at home. Glucose 150 this morning. Hemoglobin A1c 7.2%.
Currently in the hospital he is getting glargine 25 units twice daily and aspart low resistance corrective scale.
Hyperlipidemia -atorvastatin.
History of staghorn nephrolithiasis
BPH
full code
Anticipated Discharge: > 48 hours
Subjective/Interval History
-
Date of Service: June 04, 2024
Patient seen and examined. Mild right-sided abdominal pain. No nausea.
Objective Data
-
Labs:
Laboratory Results
06/04/24
05:41
Sodium 142
Potassium 4.8
Chloride 103
Carbon Dioxide 26
BUN 27 H
Creatinine 1.1
Glucose 150 H
Calcium 9.6
Total Bilirubin 1.7 H
AST 181 H
ALT 155 H
Alkaline Phosphatase 599 H
Vital Signs:
Vital Signs
Temp Pulse Resp BP Pulse Ox
97.9 F 70 18 125/63 95
06/04/24 07:00 06/04/24 08:43 06/04/24 07:00 06/04/24 08:43 06/04/24 07:50
I&O
06/03/24 06/04/24 06/05/24
06:59 06:59 06:59
Intake Total 480 / 480 780 / 780
Output Total 100 / 100
Balance 480 / 480 680 / 680
Review of Systems
-
History Source: Patient
All other systems: Reviewed and negative
--- NOTE | 2024-06-04 11:07 | PTCARENOTE ---
Assumed care of pt from previous nurse. pt provided tylenol for pain to back, will monitor for results. Pt npo awaiting mri. Pt call carbajal is within reach, pt rings apurva. will cont to monitor.
[2024-06-04 12:20] LABS: Glucose - Point of Care 101 mg/dl (70-99)
[2024-06-04] MEDS: LANTUS SC (12:31)
[2024-06-04] MEDS: LANTUS 0.25 UNITS SC ×2 (14:42→21:48)
[2024-06-04 15:00] VITALS: BP 124/65
[2024-06-04 15:41] VITALS: BP 124/65
[2024-06-04 17:11] LABS: Glucose - Point of Care 263 mg/dl (70-99)
[2024-06-04] MEDS: NOVOLOG FLEXPEN-LOW RESISTANCE 3 UNITS SC (18:16)
[2024-06-04] MEDS: PROSCAR 5 MG PO (18:17)
[2024-06-04] MEDS: FLOMAX 0.4 MG PO (18:17)
[2024-06-04 21:44] VITALS: BP 134/69
[2024-06-04 21:44] LABS: Glucose - Point of Care 227 mg/dl (70-99)
[2024-06-04] MEDS: LIPITOR 40 MG PO (21:46)
[2024-06-05 05:46] LABS: CA 19-9 196000 U/mL (<=35)
[2024-06-05 07:00] VITALS: BP 107/64
[2024-06-05 08:30] LABS: Glucose - Point of Care 150 mg/dl (70-99)
[2024-06-05 08:38] VITALS: BP 107/64
[2024-06-05] MEDS: NOVOLOG FLEXPEN-LOW RESISTANCE 1 UNITS SC (09:39)
[2024-06-05] MEDS: ASPIR LOW (ENTERIC COATED) 81 MG PO (09:40)
[2024-06-05] MEDS: THERAGRAN 1 TABLET PO (09:40)
[2024-06-05] MEDS: COZAAR 25 MG PO (09:40)
[2024-06-05] MEDS: LOPRESSOR 25 MG PO ×2 (09:41→20:31)
[2024-06-05] MEDS: HEPARIN 5000 UNITS SC ×2 (09:42→20:31)
[2024-06-05 09:47] VITALS: BP 108/65
--- NOTE | 2024-06-05 10:33 | W.PN.HOSP.TC ---
Today's Communication/Plan
-
N.p.o. after midnight
Assessment / Plan
Assessment / Plan
Gen-AAOx3, NAD
HEENT-NC, AT, anicteric, clear oral mm
Neck-supple
CV-reg, no M, +S1/S2
Lungs-clear B/L
Abd-soft, NT, ND
Ext-no edema
Musculoskeletal-no cyanosis, clubbing
Skin-warm and dry
Neuro-grossly non-focal
Psych-calm, cooperative
Pancreatic mass -CT scan confirms a mass in the pancreatic tail (4.2x3.4x2.5cm) with multiple hepatic lesions concerning for metastatic pancreatic cancer. Splenic infarct noted.
Oncology input noted. GI input noted.
IRAD consult, plan for liver biopsy on Thursday.
CT also mentions intrahepatic ductal dilation in the right lobe of the liver, possibly due to intrahepatic obstruction. Elevated bilirubin, transaminases, alkaline phosphatase noted.
MRI confirms a mass in the pancreatic tail, suggestive of pancreatic adenocarcinoma. Extensive hepatic metastases noted. Cholelithiasis, gallbladder wall thickening which is nonspecific. Prominent lymph nodes in the region of the gastrohepatic
ligament and the portacaval space. Suspicious for neoplastic lymphadenopathy. Splenic infarction noted. CA 19�9 significantly elevated.
CAD -with history of stenting. Continue medical therapy.
Essential hypertension -stable.
DM2 without hyperglycemia - on Lantus 25 units BID, Humalog 15 units AC, metformin 1000 mg twice daily, Jardiance 25 mg daily at home. Glucose 150 this morning. Hemoglobin A1c 7.2%.
Currently in the hospital he is getting glargine 25 units twice daily and aspart low resistance corrective scale.
Hyperlipidemia -atorvastatin.
History of staghorn nephrolithiasis
BPH
full code
Anticipated Discharge: 24 - 48 hours
Subjective/Interval History
-
Date of Service: June 05, 2024
Patient seen and examined. No complaints.
Objective Data
-
Vital Signs:
Vital Signs
Temp Pulse Resp BP Pulse Ox
97.8 F 77 20 108/65 97
06/05/24 07:00 06/05/24 09:47 06/05/24 07:00 06/05/24 09:47 06/05/24 07:00
I&O
06/04/24 06/05/24 06/06/24
06:59 06:59 06:59
Intake Total 780 / 780 960 / 960
Output Total 100 / 100
Balance 680 / 680 960 / 960
Review of Systems
-
History Source: Patient
All other systems: Reviewed and negative
[2024-06-05 11:57] LABS: Glucose - Point of Care 264 mg/dl (70-99)
[2024-06-05] MEDS: NOVOLOG FLEXPEN-LOW RESISTANCE 3 UNITS SC (13:45)
[2024-06-05] MEDS: LANTUS 0.25 UNITS SC ×2 (13:49→18:33)
[2024-06-05 15:00] VITALS: BP 125/65
[2024-06-05 16:50] LABS: Glucose - Point of Care 125 mg/dl (70-99)
[2024-06-05] MEDS: NOVOLOG FLEXPEN-LOW RESISTANCE SC (18:28)
[2024-06-05] MEDS: PROSCAR 5 MG PO (18:32)
[2024-06-05] MEDS: FLOMAX 0.4 MG PO (18:32)
[2024-06-05] MEDS: LIPITOR 40 MG PO (20:31)
[2024-06-05 21:27] LABS: Glucose - Point of Care 193 mg/dl (70-99)
[2024-06-05 23:00] VITALS: BP 104/62
[2024-06-06 06:03] LABS: Glucose - Point of Care 92 mg/dl (70-99)
[2024-06-06 07:29] VITALS: BP 124/68
[2024-06-06 07:51] LABS: Glucose - Point of Care 97 mg/dl (70-99)
[2024-06-06] MEDS: NOVOLOG FLEXPEN-LOW RESISTANCE SC (07:51)
[2024-06-06] MEDS: ASPIR LOW (ENTERIC COATED) PO (07:52)
[2024-06-06] MEDS: HEPARIN SC (07:52)
[2024-06-06] MEDS: COZAAR 25 MG PO (07:55)
[2024-06-06] MEDS: THERAGRAN 1 TABLET PO (07:55)
[2024-06-06] MEDS: LOPRESSOR 25 MG PO ×2 (07:55→20:23)
[2024-06-06 08:45] VITALS: BP 119/70; BP_SYST 65
--- NOTE | 2024-06-06 10:41 | W.PN.ONC2 ---
Addendum entered and electronically signed by Dory Nath MD 06/06/24 20:05:
Over the course of 45 minutes today, we discussed the usual workup and management of metastatic pancreatic cancer.
Assuming that liver mass biopsy confirms metastatic disease, goal of care is palliative.
Pt has comorbidities including diabetes and CAD. She reports that he is not very physically active.
Next gen sequencing and Genetic Counseling for germline mutation after discharge.
If no germline or actionable mutation then PS appropriate for gemcitabine/abraxane.
Expedite office follow up so that port can be placed and pt referred to genetic counseling.
Pt with hypercoagulable state as evidenced by splenic infarct. Suggest systemic anticoagulation with Eliquis.
Original Note:
Documented by User: Marcos De La Rosa DO, Resident 06/06/24 10:47
Today's Communication / Plan
-
Newfound pancreatic tail mass and hepatic lesions on CT. patient to undergo IR biopsy of lesion today
CA 19-9 is 196,000 and CEA is 62.8.
CT and MRI imaging showed splenic infarct. In setting of increased risk of arterial thrombus, heparin held and patient placed on 10 mg Eliquis twice daily for next 7 days. Transition to 5 mg twice daily subsequently
Continue management per primary medical team
Impression
Impression
74-year-old male with newfound pancreatic tail mass and potential metastatic lesions in the liver.
Subjective/Objective
Chief Complaint
Oncology progress note
Subjective
Vital Signs:
Vital Signs
Temp Pulse Resp BP Pulse Ox
98.0 F 65 18 119/70 98
06/06/24 08:45 06/06/24 08:45 06/06/24 08:45 06/06/24 08:45 06/06/24 08:45
Lab Results:
Laboratory Data
WBC 8.4 10^3/uL (4.8-10.8) 06/03/24 04:56
Hgb 13.8 g/dL (13.0-18.0) 06/03/24 04:56
Plt Count 285 10^3/uL (130-400) 06/03/24 04:56
PT 14.9 Sec (11.4-14.6) H 06/03/24 11:55
INR 1.18 06/03/24 11:55
eGFR > 60.00 06/04/24 05:41

Documented by User: Dory Nath MD 06/06/24 20:05
Today's Communication / Plan
-
Newfound pancreatic tail mass and hepatic lesions on CT. patient to undergo IR biopsy of lesion today
CA 19-9 is 196,000 and CEA is 62.8.
CT and MRI imaging showed splenic infarct. In setting of increased risk of arterial thrombus, heparin held and patient placed on 10 mg Eliquis twice daily for next 7 days. Transition to 5 mg twice daily subsequently
Continue management per primary medical team
Impression
Impression
Pancreatic tail mass with liver lesions
Splenic infarct
Plan
Plan
Over the course of 45 minutes today, we discussed the usual workup and management of metastatic pancreatic cancer.
Assuming that liver mass biopsy confirms metastatic disease, goal of care is palliative.
Pt has comorbidities including diabetes and CAD. She reports that he is not very physically active.
Next gen sequencing and Genetic Counseling for germline mutation after discharge.
If no germline or actionable mutation then PS appropriate for gemcitabine/abraxane.
Expedite office follow up so that port can be placed and pt referred to genetic counseling.
Pt with hypercoagulable state as evidenced by splenic infarct. Suggest systemic anticoagulation with Eliquis.
Subjective/Objective
Chief Complaint
Medical Oncology/Hematology follow up of pancreatic and liver masses with splenic infarct
Subjective
Denies complaint. Had liver mass biopsy today.
Physical Exam
Awake, alert, chronically ill appearing
[2024-06-06 11:57] LABS: Glucose - Point of Care 155 mg/dl (70-99)
[2024-06-06] MEDS: NOVOLOG FLEXPEN-LOW RESISTANCE 1 UNITS SC (12:26)
[2024-06-06] MEDS: LANTUS 0.25 UNITS SC ×2 (12:27→18:33)
--- NOTE | 2024-06-06 14:22 | W.PN.HOSP.TC ---
Today's Communication/Plan
-
start eliquis tonight, dc tomorrow if tolerating and hgb stable
Assessment / Plan
Assessment / Plan
NAD, resting comfortably in bed
Scleral anicteric
Moist mucous membranes
No JVD
CTA bilateral
Normal S1-S2 no murmurs
Soft nontender nondistended bowel sounds active
No peripheral pitting edema
Moves extremities spontaneously
AAOx3
Pancreatic mass, high CEA and CA 19-9. MRCP confirmed mass of pancreatic tail. S/p IR for liver biopsy. Oncology and GI both following. Will need tissue bx first prior to treatment plan. THerefore, rest of work up such as staging and awaiting
should be completed as an outpatietn.
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
hypercoagulable disorder with malignancy. Will start Eliquis 10 mg twice daily x 7 days followed by 5 mg twice daily indefinitely.
CAD -with history of stenting. Continue medical therapy.
Essential hypertension -stable.
DM2 without hyperglycemia - on Lantus 25 units BID, Humalog 15 units AC, metformin 1000 mg twice daily, Jardiance 25 mg daily at home. Glucose 150 this morning. Hemoglobin A1c 7.2%.
Currently in the hospital he is getting glargine 25 units twice daily and aspart low resistance corrective scale.
Hyperlipidemia -atorvastatin.
Anticipated Discharge: Within 24 hours
Subjective/Interval History
-
Date of Service: June 06, 2024
Seen and examined. No new complaints. No acute overnight events.
I saw him right after his liver biopsy. Stated some tenderness however not bad.
Objective Data
-
Vital Signs:
Vital Signs
Temp Pulse Resp BP Pulse Ox
98.0 F 65 18 119/70 98
06/06/24 08:45 06/06/24 08:45 06/06/24 08:45 06/06/24 08:45 06/06/24 08:45
I&O
06/05/24 06/06/24 06/07/24
06:59 06:59 06:59
Intake Total 960 / 960 1680 / 1680
Balance 960 / 960 1680 / 1680
[2024-06-06 15:41] VITALS: BP 129/61
[2024-06-06 17:04] LABS: Glucose - Point of Care 265 mg/dl (70-99)
--- NOTE | 2024-06-06 17:09 | CM ---
Spoke with pt and his Stephanie at bedside.
IMM given signed on chart.
Pt thought he would be dc today.
Offered Vn he declined VN need.
will drive him home.
PLAN Home no needs
[2024-06-06] MEDS: NOVOLOG FLEXPEN-LOW RESISTANCE 3 UNITS SC (17:11)
[2024-06-06] MEDS: FLOMAX 0.4 MG PO (17:48)
[2024-06-06] MEDS: PROSCAR 5 MG PO (17:48)
[2024-06-06] MEDS: TYLENOL 650 MG PO (18:31)
[2024-06-06] MEDS: ELIQUIS 10 MG PO (20:23)
[2024-06-06] MEDS: LIPITOR 40 MG PO (20:23)
[2024-06-06 21:31] LABS: Glucose - Point of Care 207 mg/dl (70-99)
[2024-06-06 23:05] VITALS: BP 121/65
[2024-06-07 07:30] VITALS: BP 119/64
[2024-06-07 07:42] LABS: Glucose - Point of Care 142 mg/dl (70-99)
[2024-06-07] MEDS: NOVOLOG FLEXPEN-LOW RESISTANCE SC (07:56)
[2024-06-07] MEDS: COZAAR 25 MG PO (08:23)
[2024-06-07] MEDS: ELIQUIS 10 MG PO (08:24)
[2024-06-07] MEDS: LOPRESSOR 25 MG PO (08:24)
[2024-06-07] MEDS: THERAGRAN 1 TABLET PO (08:24)
[2024-06-07] MEDS: ASPIR LOW (ENTERIC COATED) 81 MG PO (08:24)
--- NOTE | 2024-06-07 10:05 | W.PN.UPDATE ---
Update Note
Progress Note Update
Likely for d/c today
Continue Eliquis for splenic infarct and hypercoagulability from pancreas cancer
s/p liver biopsy yesterday
I've asked our office computer processing scheduler to contact patient w/ a office appt next week
Will sign off, please call with any questions
[2024-06-07 11:43] LABS: Glucose - Point of Care 241 mg/dl (70-99)
[2024-06-07 11:50] LABS: % Basophils 0.5 % (0-2); % Eosinophils 0.5 % (0-6); % Immature Granulocytes 0.5 % (0-0.5); % Lymphocytes 11.3 % (20.5-51.1); % Monocytes 11.2 % (1.7-9.3); Absolute Basophils 0.1 10^3/uL (0-0.2); Absolute Eosinophils 0.1 10^3/uL (0-0.7); Absolute Immature Granulocytes 0.1 10^3/uL (0-0.05); Absolute Lymphocytes 1.3 10^3/uL (1.2-3.4); Absolute Monocytes 1.3 10^3/uL (0.1-0.6); Hematocrit 41.7 % (39.0-52.0); Hemoglobin 13.5 g/dL (13.0-18.0); Mean Corp Hgb Conc. 32.4 g/dL (33.0-37.0); Mean Corpuscular Hgb 27.7 pg (27.0-31.0); Mean Corpuscular Volume 85.5 fL (80.0-94.0); Mean Platelet Volume 9.5 fL (7.4-10.4); Nucleated Red Blood Cells % 0 % (-); Platelet Count 338 10^3/uL (130-400); Red Blood Cell Count 4.88 10^6/uL (4.70-6.10); Red Cell Dist. Width 15.5 % (11.5-14.5); White Blood Cell Count 11.8 10^3/uL (4.8-10.8)
[2024-06-07 12:15] LABS: ALT (SGPT) 152 U/L (0-50); AST (SGOT) 225 U/L (17-59); Albumin 3.3 g/dl (3.5-5.0); Alkaline Phosphatase 555 U/L (38-126); Blood Urea Nitrogen 26 mg/dl (9-20); Calcium 9.8 mg/dl (8.4-10.2); Carbon Dioxide 29 mmol/L (22-30); Chloride 99 mmol/L (98-107); Estimated Creatinine Clearance 74 ml/min; Glucose 249 mg/dl (70-99); Potassium 5.1 mmol/L (3.5-5.1); Sodium 137 mmol/L (135-145); Total Protein 6.3 g/dl (6.3-8.2); eGFR > 60.00
--- NOTE | 2024-06-07 12:15 | CM ---
Addendum entered by Zoraida Ross RN 06/07/24 14:14:
Pt and requested [facility] .
Aisha Feldman notified of of [facility] referral .
PLAN Home with [facility]
Original Note:
Stephanie will drive him home at dc.
Pt thought he would be dc today.
Offered Vn he declined VN need.
PLAN Home no needs
--- NOTE | 2024-06-07 12:43 | W.PN.HOSP.TC ---
Today's Communication/Plan
-
dc now
Assessment / Plan
Assessment / Plan
Pancreatic mass, high CEA and CA 19-9. MRCP confirmed mass of pancreatic tail. S/p IR for liver biopsy. Oncology and GI both following. Will need tissue bx first prior to treatment plan. THerefore, rest of work up such as staging and awaiting
should be completed as an outpatient.
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
hypercoagulable disorder with malignancy. Will start Eliquis 10 mg twice daily x 7 days followed by 5 mg twice daily indefinitely.
CAD -with history of stenting. Continue medical therapy.
Essential hypertension -stable.
DM2 without hyperglycemia - on Lantus 25 units BID, Humalog 15 units AC, metformin 1000 mg twice daily, Jardiance 25 mg daily at home. Glucose 155-265. Hemoglobin A1c 7.2%.
Currently in the hospital he is getting glargine 25 units twice daily and aspart low resistance corrective scale. Will continue ASA due to hx of stenting and previously on Brilenta, stopped 3 weeks ago.
Hyperlipidemia -atorvastatin.
P: dc to home
see dictated note
More than 30 minutes spent in discharge including
Final examination of the patient
Summarizing hospital stay
Instructions for continuing care to all relevant caregivers
Preparation of discharge records, prescriptions, and referral forms
Total time spent (in minutes): 45
Anticipated Discharge: Today
Subjective/Interval History
-
Date of Service: June 07, 2024
Tolerating diet, anxiously awaiting dc
Objective Data
-
Labs:
Laboratory Results
06/07/24
11:16
WBC 11.8 H
Hgb 13.5
Hct 41.7
Plt Count 338
Sodium 137
Potassium 5.1
Chloride 99
Carbon Dioxide 29
BUN 26 H
Creatinine 0.9
Glucose 249 H
Calcium 9.8
Total Bilirubin 2.0 H
AST 225 H
ALT 152 H
Alkaline Phosphatase 555 H
Vital Signs:
Vital Signs
Temp Pulse Resp BP Pulse Ox
98.3 F 77 18 119/64 95
06/07/24 07:30 06/07/24 08:23 06/07/24 07:30 06/07/24 08:23 06/07/24 07:30
I&O
06/06/24 06/07/24 06/08/24
06:59 06:59 06:59
Intake Total 0 / 0
Balance 1680 / 0
Review of Systems
-
History Source: Patient and Family (reviewed with at bedside)
Constitutional: Reports No Symptoms; Denies Fever
EENT: Reports No Symptoms Reported
Respiratory: Reports No Symptoms
Cardiac: Reports No Symptoms
Abdomen/GI: Denies Abdominal Pain, Nausea or Vomiting
Genitourinary: Reports No Symptoms
Musculoskeletal: Reports No Symptoms
Neuro: Reports No Symptoms
Physical Exam
-
General: Well Developed, Well Nourished and No Apparent Distress
HEENT: Normocephalic, Atraumatic and Moist Mucous Membranes
Respiratory: Clear to Auscultation; Negative Wheezes, Rales or Rhonchi
Cardiac: Regular Rhythm and S1/S2
GI: Soft, Nontender, Nondistended and Normal Bowel Sounds
Musculoskeletal: No Clubbing, No Cyanosis and No Edema
--- NOTE | 2024-06-07 13:16 | W.DS.TRANS ---
DC Summary - [facility]ender
-
Discharge Instructions:
Discharge Diagnosis/Procedures Pancreatic Cancer
Diet Low Fat,Supplements
Additional Diets okay for supplement
Activity No strenuous activity
Driving Restrictions Not until seen by your Dr
Bathing Restrictions None
Blood Work CBC, CMP in 1-2 weeks
Other Services VN
Instructions:
Stand-Alone Forms:
Changes to Home Medications: Yes
Discharge Medications:
DC Medications w/original date entered in [email or web address]
finasteride 5 mg tablet 5 mg PO QPM urinary issue 04/02/14
multivitamin with minerals-ferrous sulfate 4.5 mg iron tablet (One Daily Multivitamins with Minerals) 1 tab PO DAILY supplement 04/02/14
tamsulosin 0.4 mg capsule 0.4 mg PO QPM urinary issue 04/02/14
nitroglycerin 0.4 mg sublingual tablet 0.4 mg sublingual [id number] PRN chest pain #30 tabs 04/04/14
insulin lispro 100 unit/mL subcutaneous pen (Humalog KwikPen (U-100) Insulin) 15 units SC AC diabetes 06/25/18
aspirin 81 mg tablet,delayed release 81 mg PO DAILY Blood Clot Prevention/Tx 06/02/24
atorvastatin 40 mg tablet (Lipitor) 40 mg PO HS High Cholesterol 06/02/24
empagliflozin 25 mg tablet (Jardiance) 25 mg PO DAILY diabetes 06/02/24
insulin glargine 100 unit/mL subcutaneous solution (Lantus U-100 Insulin) 25 unit SC BID@1200,1900 diabetes 06/02/24
losartan 25 mg tablet 25 mg PO DAILY Blood Pressure 06/02/24
metoprolol tartrate 25 mg tablet 25 mg PO BID blood pressure 06/02/24
apixaban 5 mg tablet (Eliquis) 5 mg PO BID #60 tabs 06/07/24
apixaban 5 mg tablet (Eliquis) 10 mg (2 x 5 mg) PO BID #24 tabs 06/07/24
Home Medication Changes
Eliquis 2 tabs bid for 12 doses, then 1 tab bid to follow added
Pending Results: Yes
Additional Pending Results:
Liver biopsy results
[2024-06-07] MEDS: NOVOLOG FLEXPEN-LOW RESISTANCE 2 UNITS SC (13:38)
[2024-06-07] MEDS: LANTUS 0.25 UNITS SC (13:38)
--- NOTE | 2024-06-07 14:52 | VNURNOTE ---
Called patient to explain [facility] services. No answer. Liasion left message. Referral placed in [facility].
== END 2024-06-07 14:03 | disposition home health service (06) | DRG 436 ==
LOC: 4 WEST ACU 15:37
PROVIDERS: Hospitalist; Nurse Practitioner Adult Health; Physician Assistant; Radiology Vascular & Interventional Radiology; ADMITTING PHYSICIAN Hospitalist; ATTENDING PHYSICIAN Internal Medicine; CONSULT PHYSICIAN Internal Medicine; EMERGENCY PHYSICIAN Emergency Medicine; FAMILY PHYSICIAN Internal Medicine; OTHER PHYSICIAN Internal Medicine Hematology & Oncology
PROC: 0FB03ZX Excision of Liver, Percutaneous Approach, Diagnostic (ICD-10-PCS; 2024-06-06)
DX: C25.2 Malignant neoplasm of tail of pancreas (principal); C78.7 Secondary malignant neoplasm of liver and intrahepatic bile duct; E11.9 Type 2 diabetes mellitus without complications; I10 Essential (primary) hypertension; R63.4 Abnormal weight loss; D73.5 Infarction of spleen; E78.00 Pure hypercholesterolemia, unspecified; I25.10 Atherosclerotic heart disease of native coronary artery without angina pectoris; Z95.5 Presence of coronary angioplasty implant and graft; N20.0 Calculus of kidney; N40.0 Benign prostatic hyperplasia without lower urinary tract symptoms; R68.81 Early satiety; R91.1 Solitary pulmonary nodule; Z68.29 Body mass index [BMI] 29.0-29.9, adult; Z79.4 Long term (current) use of insulin; Z79.82 Long term (current) use of aspirin; Z79.84 Long term (current) use of oral hypoglycemic drugs; Z79.899 Other long term (current) drug therapy; Z87.19 Personal history of other diseases of the digestive system; Z86.73 Personal history of transient ischemic attack (TIA), and cerebral infarction without residual deficits; Z85.51 Personal history of malignant neoplasm of bladder; Z85.820 Personal history of malignant melanoma of skin; Z85.828 Personal history of other malignant neoplasm of skin; Z86.010 Personal history of colon polyps; Z90.89 Acquired absence of other organs
CPT/HCPCS: 88307; 47000; 71260; 74177; 74183; 76942; 80053; 82105; 82248; 82378; 82962; 83036; 83690; 84484; 85025; 85610; 86301; 88333; 88334; 88341; 88342; 93005; 99152; 99285; A9575; Q9967

== ENCOUNTER → 2024-06-10 08:12 | Outpatient (REF) | payer MEDICARE, SELFPAY ==
[2024-06-10 09:36] LABS: % Basophils 0.6 % (0-2); % Eosinophils 1.8 % (0-6); % Immature Granulocytes 0.6 % (0-0.5); % Lymphocytes 8.6 % (20.5-51.1); % Neutrophils 74.4 % (42.2-75.2); Absolute Basophils 0.1 10^3/uL (0-0.2); Absolute Eosinophils 0.2 10^3/uL (0-0.7); Absolute Immature Granulocytes 0.1 10^3/uL (0-0.05); Absolute Lymphocytes 0.9 10^3/uL (1.2-3.4); Absolute Monocytes 1.5 10^3/uL (0.1-0.6); Absolute Neutrophils 8.1 10^3/uL (1.4-6.5); Hematocrit 39.6 % (39.0-52.0); Mean Corp Hgb Conc. 32.8 g/dL (33.0-37.0); Mean Corpuscular Hgb 28.4 pg (27.0-31.0); Mean Corpuscular Volume 86.7 fL (80.0-94.0); Mean Platelet Volume 9.7 fL (7.4-10.4); Nucleated Red Blood Cells % 0 % (-); Platelet Count 331 10^3/uL (130-400); Red Blood Cell Count 4.57 10^6/uL (4.70-6.10); Red Cell Dist. Width 15.1 % (11.5-14.5); White Blood Cell Count 10.9 10^3/uL (4.8-10.8)
[2024-06-10 10:03] LABS: ALT (SGPT) 134 U/L (0-50); AST (SGOT) 179 U/L (17-59); Albumin 3.1 g/dl (3.5-5.0); Alkaline Phosphatase 603 U/L (38-126); Blood Urea Nitrogen 33 mg/dl (9-20); Calcium 9.7 mg/dl (8.4-10.2); Carbon Dioxide 25 mmol/L (22-30); Chloride 101 mmol/L (98-107); Glucose 129 mg/dl (70-99); HDL Cholesterol 29 mg/dl; LDL Cholesterol, Calculated 41 mg/dl; Potassium 4.4 mmol/L (3.5-5.1); Sodium 139 mmol/L (135-145); Total Bilirubin 2.3 mg/dl (0.2-1.3); Total Cholesterol 90 mg/dl (50-199); Total Protein 6.2 g/dl (6.3-8.2); Triglyceride 103 mg/dl (10-149); Very Low Density Lipoprotein 20 mg/dl (0-30); eGFR > 60.00
== END ==
LOC: HWLAB 08:12
PROVIDERS: ATTENDING PHYSICIAN Internal Medicine; FAMILY PHYSICIAN Internal Medicine
DX: E11.9 Type 2 diabetes mellitus without complications (principal); E78.5 Hyperlipidemia, unspecified
CPT/HCPCS: 36415; 80053; 80061; 85025; 86618

== ENCOUNTER 2024-06-27 12:43 | Emergency (ER) | payer MEDICARE, SELFPAY ==
[2024-06-27 12:51] VITALS: BP 109/63
[2024-06-27 13:15] LABS: % Basophils 0.3 % (0-2); % Eosinophils 0.3 % (0-6); % Immature Granulocytes 1.2 % (0-0.5); % Neutrophils 81.2 % (42.2-75.2); Absolute Eosinophils 0.1 10^3/uL (0-0.7); Absolute Immature Granulocytes 0.2 10^3/uL (0-0.05); Absolute Lymphocytes 1.2 10^3/uL (1.2-3.4); Absolute Monocytes 1.4 10^3/uL (0.1-0.6); Absolute Neutrophils 12.3 10^3/uL (1.4-6.5); Hematocrit 32.4 % (39.0-52.0); Hemoglobin 10.8 g/dL (13.0-18.0); Mean Corp Hgb Conc. 33.3 g/dL (33.0-37.0); Mean Corpuscular Hgb 27.3 pg (27.0-31.0); Mean Corpuscular Volume 81.8 fL (80.0-94.0); Mean Platelet Volume 9.3 fL (7.4-10.4); Nucleated Red Blood Cells % 0 % (-); Platelet Count 344 10^3/uL (130-400); Red Blood Cell Count 3.96 10^6/uL (4.70-6.10); Red Cell Dist. Width 15.8 % (11.5-14.5); White Blood Cell Count 15.2 10^3/uL (4.8-10.8)
[2024-06-27 13:31] LABS: ALT (SGPT) 99 U/L (0-50); AST (SGOT) 193 U/L (17-59); Albumin 2.6 g/dl (3.5-5.0); Alkaline Phosphatase 1022 U/L (38-126); Blood Urea Nitrogen 31 mg/dl (9-20); Carbon Dioxide 22 mmol/L (22-30); Chloride 102 mmol/L (98-107); Glucose 144 mg/dl (70-99); Potassium 5.3 mmol/L (3.5-5.1); Sodium 133 mmol/L (135-145); Total Bilirubin 3.4 mg/dl (0.2-1.3); Total Protein 5.5 g/dl (6.3-8.2); eGFR > 60.00
--- NOTE | 2024-06-27 13:32 | ED.GENMED ---
History of Present Illness
General
Chief Complaint: Weakness
Source: patient, records and spouse
Time Seen by Provider: 06/27/24 13:17
History of Present Illness
History of Present Illness:
74yoM with a history of recently diagnosed metastatic pancreatic cancer, coronary artery disease, hypertension, hyperlipidemia, and type 2 diabetes presenting with his for evaluation of generalized weakness. Patient was hospitalized from
06/02/2024 to 06/07/2024 for a pancreatic mass. Biopsy of the liver masses revealed poorly differentiated adenocarcinoma. Patient has been following with El Brown since discharge and is scheduled to start chemotherapy later this week. states
that he has been increasingly weak over the past few weeks. Patient is able to walk but he has to hold onto things due to his weakness. He also has a poor appetite and has not been eating or drinking much. believes that he is dehydrated.
Patient denies any fevers, vomiting, abdominal pain, shortness of breath. He is urinating normally.
Past History
Past History
ED Past Medical History: HTN, Hypercholesterolemia and NIDDM
ED Past Surgical History: Appendectomy, Orthopedic and Tonsilectomy
Social History
Tobacco: Non-smoker
Living: with family
Phy Exam
Physical Exam
Physical Exam:
Chronically ill appearing male, no acute distress
General Physical Exam
General Presentation: no apparent distress
General Skin: warm and dry
General Habitus: elderly
General Mental: alert
ENT Exam
ENT Exam: pharynx normal and normocephalic
Cardiovascular Exam
Cardiovascular Exam: regular rate/rhythm
Pulmonary Exam
Pulmonary Exam: lungs clear, no respiratory distress, no rales, no crackles and no rhonchi
Gastrointestinal Exam
Gastrointestinal Exam: non tender, soft and non distended
Lamona Coma Scale
Eye Opening: Spontaneous
Verbal Response: Oriented
Motor Response: Obeys Commands
GCS Total Score: 15
Skin Exam
Skin Exam: normal color and warm/dry
Psychiatric Exam
Psychiatric Exam: normal mood/affect
Course
Orders/Labs/Results
Orders:
Orders
06/27/24 13:01
Complete Blood Count/With Diff Urgent
Comprehensive Metabolic Panel Urgent
06/27/24 13:31
0.9% Sodium Chloride 1000 ml [Nss] 1,000 ml IV BOLUS
Abnormal Lab Results
06/27/24
13:01
WBC 15.2 H 10^3/uL
(4.8-10.8)
RBC 3.96 L 10^6/uL
(4.70-6.10)
Hgb 10.8 L g/dL
(13.0-18.0)
Hct 32.4 L %
(39.0-52.0)
RDW 15.8 H %
(11.5-14.5)
Abs Immat Gran (auto) 0.2 H 10^3/uL
(0-0.05)
Absolute Neuts (auto) 12.3 H 10^3/uL
(1.4-6.5)
Absolute Monos (auto) 1.4 H 10^3/uL
(0.1-0.6)
Immature Gran % 1.2 H %
(0-0.5)
Neutrophils % 81.2 H %
(42.2-75.2)
Lymphocytes % 8.0 L %
(20.5-51.1)
Sodium 133 L mmol/L
(135-145)
Potassium 5.3 H mmol/L
(3.5-5.1)
BUN 31 H mg/dl
(9-20)
Glucose 144 H mg/dl
(70-99)
Total Bilirubin 3.4 H mg/dl
(0.2-1.3)
AST 193 H U/L
(17-59)
ALT 99 H U/L
(0-50)
Alkaline Phosphatase 1022 H U/L
(38-126)
Total Protein 5.5 L g/dl
(6.3-8.2)
Albumin 2.6 L g/dl
(3.5-5.0)
06/27/24 13:01
06/27/24 13:01
Vital Signs
Initial and Last Documented VS:
Initial Vital Signs
Temp Pulse Resp BP Pulse Ox
98.0 F 68 16 109/63 98
06/27/24 12:51 06/27/24 12:51 06/27/24 12:51 06/27/24 12:51 06/27/24 12:51
Last Documented Vital Signs
Temp Pulse Resp BP Pulse Ox
98.0 F 62 16 106/56 98
06/27/24 12:51 06/27/24 14:19 06/27/24 14:19 06/27/24 14:19 06/27/24 14:19
MDM/Problems Addressed
Differential Diagnosis Includes:
74yoM here with generalized weakness and feeling dehydrated. Hx of recently diagnosed metastatic pancreatic cancer. Starting chemo this week. No f/c. Patient is afebrile and hemodynamically stable. He is chronically ill-appearing in no distress.
Differential diagnosis includes but is not limited to: Failure to thrive, weakness related to underlying malignancy, dehydration
Initial ED plan: Check CBC, CMP and give IV fluid bolus.
*Critical Care Note
Total Time (30-74mins, 75-104mins- exclusive of procedures): Not Applicable
Update Note
Update Note:
Labs reveal a leukocytosis with a white count of 15, likely secondary to underlying malignancy. Transaminitis noted consistent with his known liver metastases. Potassium minimally elevated at 5.3 although renal function is normal. On
reassessment, patient is feeling significantly improved after fluid bolus. He was able to ambulate independently in the ED. He is anxious to be discharged. Patient was advised to follow-up with his PCP and oncologist. ED return precautions
discussed. Patient and in agreement with plan. He was discharged in stable condition.
ED Attending Note
-
Portions of this chart may have been created with voice recognition software.� Occasional wrong word or��sound alike� substitutions may have occurred due to the inherent limitations of voice recognition software.
Discharge Plan
Departure
Patient Disposition: Home (Routine Discharge)
Date of Disposition: 06/27/24
Time of Disposition: 14:54
Patient with high blood pressure during this ER visit?: No
Discharge Problem:
Generalized weakness
Instructions: Generalized Weakness (DC)
Prescriptions:
No Action
tamsulosin 0.4 MG capsule
0.4 mg PO QPM
finasteride 5 MG tablet
5 mg PO QPM
Patient Comments:
06/02/24 patient accidently took his medicatioon twice yesterday 06/01/24
One Daily Multi-Vit w-Mineral 1 EACH tablet
1 tab PO DAILY
nitroglycerin 0.4 MG tablet, sublingual
0.4 mg sublingual [id number] PRN (Reason: chest pain) Qty: 30 2RF
insulin lispro [Humalog KwikPen Insulin] 100 UNIT/ML insulin pen
15 units SC AC
insulin glargine [Lantus U-100 Insulin] 100 unit/mL Solution
25 unit SC BID@1200,1900
losartan 25 mg Tablet
25 mg PO DAILY
Patient Comments:
06/02/24 patient accidently took his medicatioon twice yesterday
Jardiance 25 mg Tablet
25 mg PO DAILY
Patient Comments:
06/02/24 patient accidently took his medicatioon twice yesterday
atorvastatin [Lipitor] 40 mg Tablet
40 mg PO HS
aspirin 81 MG tablet,delayed release (DR/EC)
81 mg PO DAILY
metoprolol tartrate 25 MG tablet
25 mg PO BID
Eliquis 5 mg tablet
5 mg PO BID Qty: 60 2RF
Rx Instructions:
start after 6 days of 2 tabs 2x per day
Eliquis 5 mg tablet
10 mg PO BID Qty: 24 0RF
Referrals:
Devendra Pitts MD [Family Provider] -
Activity Restrictions/Additional Instructions:
Drink plenty of fluids and stay hydrated.
Please follow-up with your family doctor and oncologist. Return to the ER with any new or worsening symptoms.
Interventions
Interventions:
*Risk Screen - Suicide Last Done: 06/27/24 12:51
*General Assessment Last Done: 06/27/24 13:23
*Neglect/Abuse Screening Last Done: 06/27/24 12:51
ED- Fall Risk Assessment Last Done: 06/27/24 13:23
*ED COVID-19 Vaccine History Last Done: 06/27/24 13:23
*Nursing Disposition Last Done: 06/27/24 15:11
ED- Cardiac Assessment Last Done: 06/27/24 13:23
ED- Neurological Assessment Last Done: 06/27/24 13:23
ED- Pulmonary Assessment Last Done: 06/27/24 13:23
Discharge Date and Time
Discharge Date/Time: 06/27/24 15:12
Print Language: [place]
[2024-06-27] MEDS: NSS 1000 IV (13:33)
[2024-06-27 14:19] VITALS: BP 106/56
== END 2024-06-27 15:12 | disposition home or self-care (01) ==
LOC: EMR 12:43
PROVIDERS: Emergency Medicine; EMERGENCY PHYSICIAN Emergency Medicine; FAMILY PHYSICIAN Internal Medicine
DX: R53.1 Weakness (principal); E78.00 Pure hypercholesterolemia, unspecified; I10 Essential (primary) hypertension
CPT/HCPCS: 99284; 96360; 80053; 85025

== ENCOUNTER 2024-06-30 12:58 | Observation (INO) | payer MEDICARE, SELFPAY ==
[2024-06-30] VITALS (18 sets, daily range): BP systolic 98–124; BP diastolic 47–74; BMI 30.9; BMI 29.5
[2024-06-30 07:02] LABS: Glucose - Point of Care 183 mg/dl (70-99)
--- NOTE | 2024-06-30 07:19 | ED.GENMED ---
History of Present Illness
General
Chief Complaint: Weakness
Source: patient
Exam Limitations: none
Time Seen by Provider: 06/30/24 07:03
History of Present Illness
History of Present Illness:
74-year-old male presents via EMS after weakness episode and possible syncopal episode. He has known pancreatic cancer with mets to the liver. He is following with El Brown. He was here 3 days ago for weakness and improved with fluids. He was
hypotensive on EMS arrival they gave some fluids. He denies any pain. He is a type 2 insulin-dependent diabetic on Eliquis. Patient does not recall falling however he does have a skin tear to his elbow.
Past History
Past History
ED Past Medical History: HTN, Hypercholesterolemia and NIDDM
ED Past Surgical History: Appendectomy, Orthopedic and Tonsilectomy
Social History
Tobacco: Non-smoker
Living: with family
Phy Exam
Physical Exam
Physical Exam:
General: Well-appearing male no acute respiratory distress
HEENT: Normocephalic no obvious trauma
Heart: Regular rate and rhythm lungs: Clear no wheeze
Abdomen soft nontender nondistended
Extremities: No cyanosis or edema
Neurologic exam: Alert oriented to person place and time. Occasionally forgets words. Sometimes slow to answer questions. No unilateral weakness noted no dysarthria. No facial asymmetry no drift
Skin: Mildly jaundiced
Course
Orders/Labs/Results
Orders:
Orders
06/30/24 07:08
Electrocardiogram (*1) Urgent
Reason for Study: Vertigo / Dizzy
EKG- Treatment ONCE
06/30/24 07:12
Complete Blood Count/With Diff Urgent
Comprehensive Metabolic Panel Urgent
06/30/24 07:14
PTT Urgent
Prothrombin Time Urgent
06/30/24 07:15
CT Head W/o Iv Contrast Urgent
Comment:
Reason For Exam: fall/syncope/confusion
06/30/24 07:23
0.9% Sodium Chloride 1000 ml [Nss] 1,000 ml IV BOLUS
06/30/24 07:39
Ammonia Urgent
06/30/24 10:54
NSS 1000mL Bolus over 1 hr 0.9% Sodium Chloride 1000 ml [Nss] 1,000 ml IV BOLUS
Abnormal Lab Results
06/30/24 06/30/24 06/30/24
07:01 07:12 07:14
WBC 13.2 H 10^3/uL
(4.8-10.8)
RBC 3.41 L 10^6/uL
(4.70-6.10)
Hgb 9.4 L g/dL
(13.0-18.0)
Hct 28.3 L %
(39.0-52.0)
RDW 16.3 H %
(11.5-14.5)
Abs Immat Gran (auto) 0.1 H 10^3/uL
(0-0.05)
Absolute Neuts (auto) 10.1 H 10^3/uL
(1.4-6.5)
Absolute Monos (auto) 1.7 H 10^3/uL
(0.1-0.6)
Immature Gran % 1.0 H %
(0-0.5)
Neutrophils % 76.1 H %
(42.2-75.2)
Lymphocytes % 8.7 L %
(20.5-51.1)
Monocytes % 13.1 H %
(1.7-9.3)
PT 24.4 H Sec
(11.4-14.6)
APTT 39.1 H Sec
(23.4-35.0)
Sodium 133 L mmol/L
(135-145)
Carbon Dioxide 20 L mmol/L
(22-30)
BUN 38 H mg/dl
(9-20)
Glucose 191 H mg/dl
(70-99)
Calcium 8.2 L mg/dl
(8.4-10.2)
Total Bilirubin 3.9 H mg/dl
(0.2-1.3)
AST 207 H U/L
(17-59)
ALT 95 H U/L
(0-50)
Alkaline Phosphatase 945 H U/L
(38-126)
Total Protein 5.0 L g/dl
(6.3-8.2)
Albumin 2.3 L g/dl
(3.5-5.0)
POC Glucose 183 H mg/dl
(70-99)
06/30/24 07:12
06/30/24 07:12
Vital Signs
Initial and Last Documented VS:
Initial Vital Signs
Temp Pulse Resp BP Pulse Ox
98.2 F 82 16 101/48 98
06/30/24 06:58 06/30/24 06:58 06/30/24 06:58 06/30/24 06:58 06/30/24 06:58
Last Documented Vital Signs
Temp Pulse Resp BP Pulse Ox
98.2 F 76 15 108/51 97
06/30/24 06:58 06/30/24 08:30 06/30/24 08:30 06/30/24 08:28 06/30/24 08:30
MDM/Problems Addressed
Differential Diagnosis Includes:
Patient presents via EMS after episode of weakness possible syncope. Patient is a limited historian and family members not in the room at this time. He is on Eliquis. Concern for head trauma will check CT for any intracranial hemorrhage. Patient
is known to have pancreatic cancer with metastasis to liver. Check labs and hydrate.
*Critical Care Note
Total Time (30-74mins, 75-104mins- exclusive of procedures): Not Applicable
Update Note
Update Note:
Spoke with patient's and daughter Diane. They describe during the episode that the patient's right arm and leg were very weak almost flaccid. This has since resolved. CT of the head was negative. Discussed with neurology given transient
episode of right-sided weakness. Will admit to hospital for further workup. Fluids ordered. Labs reviewed. He has stable transaminitis.
ED Attending Note
-
Portions of this chart may have been created with voice recognition software.� Occasional wrong word or��sound alike� substitutions may have occurred due to the inherent limitations of voice recognition software.
Discharge Plan
Departure
Patient Disposition: Admit
Date of Disposition: 06/30/24
Time of Disposition: 10:56
Admit to: Telemetry
Presentation/result/management discussed w/ accepting MD/DO: Hospitalist
Discharge Problem:
Weakness
Prescriptions:
No Action
tamsulosin 0.4 MG capsule
0.4 mg PO QPM
finasteride 5 MG tablet
5 mg PO QPM
Patient Comments:
06/02/24 patient accidently took his medicatioon twice yesterday 06/01/24
One Daily Multi-Vit w-Mineral 1 EACH tablet
1 tab PO DAILY
nitroglycerin 0.4 MG tablet, sublingual
0.4 mg sublingual [id number] PRN (Reason: chest pain) Qty: 30 2RF
insulin lispro [Humalog KwikPen Insulin] 100 UNIT/ML insulin pen
15 units SC AC
insulin glargine [Lantus U-100 Insulin] 100 unit/mL Solution
25 unit SC BID@1200,1900
losartan 25 mg Tablet
25 mg PO DAILY
Patient Comments:
06/02/24 patient accidently took his medicatioon twice yesterday
Jardiance 25 mg Tablet
25 mg PO DAILY
Patient Comments:
06/02/24 patient accidently took his medicatioon twice yesterday
atorvastatin [Lipitor] 40 mg Tablet
40 mg PO HS
aspirin 81 MG tablet,delayed release (DR/EC)
81 mg PO DAILY
metoprolol tartrate 25 MG tablet
25 mg PO BID
Eliquis 5 mg tablet
5 mg PO BID Qty: 60 2RF
Rx Instructions:
start after 6 days of 2 tabs 2x per day
Eliquis 5 mg tablet
10 mg PO BID Qty: 24 0RF
Referrals:
Devendra Pitts MD [Family Provider] -
Interventions
Interventions:
*Risk Screen - Suicide Last Done: 06/30/24 06:58
*General Assessment Last Done: 06/30/24 06:58
*Neglect/Abuse Screening Last Done: 06/30/24 06:58
*ED COVID-19 Vaccine History Last Done: 06/30/24 06:58
ED- Cardiac Assessment Last Done: 06/30/24 07:20
ED- Neurological Assessment Last Done: 06/30/24 07:20
ED- Pulmonary Assessment Last Done: 06/30/24 07:20
Discharge Date and Time
Print Language: [place]
[2024-06-30 07:27] LABS: % Basophils 0.3 % (0-2); % Eosinophils 0.8 % (0-6); % Lymphocytes 8.7 % (20.5-51.1); % Monocytes 13.1 % (1.7-9.3); % Neutrophils 76.1 % (42.2-75.2); Absolute Eosinophils 0.1 10^3/uL (0-0.7); Absolute Immature Granulocytes 0.1 10^3/uL (0-0.05); Absolute Lymphocytes 1.2 10^3/uL (1.2-3.4); Absolute Monocytes 1.7 10^3/uL (0.1-0.6); Absolute Neutrophils 10.1 10^3/uL (1.4-6.5); Hematocrit 28.3 % (39.0-52.0); Hemoglobin 9.4 g/dL (13.0-18.0); Mean Corp Hgb Conc. 33.2 g/dL (33.0-37.0); Mean Corpuscular Hgb 27.6 pg (27.0-31.0); Mean Platelet Volume 9.4 fL (7.4-10.4); Nucleated Red Blood Cells % 0 % (-); Platelet Count 284 10^3/uL (130-400); Red Blood Cell Count 3.41 10^6/uL (4.70-6.10); Red Cell Dist. Width 16.3 % (11.5-14.5); White Blood Cell Count 13.2 10^3/uL (4.8-10.8)
[2024-06-30] MEDS: NSS 1000 IV ×2 (07:28→11:09)
[2024-06-30 07:38] LABS: INR 2.17; PT 24.4 Sec (11.4-14.6)
[2024-06-30 07:39] LABS: APTT 39.1 Sec (23.4-35.0)
[2024-06-30 07:43] LABS: ALT (SGPT) 95 U/L (0-50); AST (SGOT) 207 U/L (17-59); Albumin 2.3 g/dl (3.5-5.0); Alkaline Phosphatase 945 U/L (38-126); Blood Urea Nitrogen 38 mg/dl (9-20); Calcium 8.2 mg/dl (8.4-10.2); Carbon Dioxide 20 mmol/L (22-30); Chloride 102 mmol/L (98-107); Estimated Creatinine Clearance 58 ml/min; Glucose 191 mg/dl (70-99); Potassium 4.5 mmol/L (3.5-5.1); Sodium 133 mmol/L (135-145); Total Bilirubin 3.9 mg/dl (0.2-1.3); eGFR 56.93
[2024-06-30 08:14] LABS: Ammonia 11 umol/L (9-30)
--- NOTE | 2024-06-30 12:33 | HPS.HSE ---
Family Physician
-
Family Physician: Devendra Pitts
Chief Complaint
-
Right arm and leg weakness, possible syncope
History of Present Illness
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
possible syncopal episode.
She was seen here in the emergency department 3 days ago with similar complaints that improved with IV fluids. Today he had recurrence roughly 1 to 2 hours previous to arrival. Upon arrival to the ED today he was found to be hypotensive and
received IV fluids. He denied any pain today. Additional history was provided by the patient's and daughter, stated that during the episode his right arm and leg became weak/flaccid. Symptoms did not improve subsequently, prior to the
arrival in the emergency department. AFVSS on arrival though blood pressure was soft. ED labs showed serum sodium 133, BUN 38, creatinine 1.3, T. bili 3.9, AST 207, ALT 95, ALP 945, hemoglobin 9.4, WBC 13.2. CT head without contrast showed no
acute findings of ICH or CVA, did show global encephalomalacia and possible 2 mm scalp hematoma. Neurology evaluated patient in ED and recommended admission for MRI/TIA workup. He was started on IV fluids in the ED.
Upon my evaluation, the patient's and daughter states that he has had similar occurrences with weakness in his lower extremities. His symptoms on 06/27 were different than today, not as severe and more localized to his legs than upper
extremity. They state that they do not think he passed out, but looks like he 'nodded off'. Patient denies hematochezia, melena, hematemesis. Denies chest pain, dyspnea, palpitations. Denies fevers or chills. States he does have some
dizziness/lightheadedness with positional changes that has been present for some time. His family also complains of some discharge from the right eye, does have some scleral injection. He denies eye pain, blurry vision, pruritus. States that he
awoke like that. He has not had any chemotherapy sessions, was scheduled to start them with oncology on 07/01/24.
Medical History
Past Medical History
Past Medical History: Reports CAD, Cancer (Pancreatic (IV) to liver), HTN, Hypercholesterolemia, IDDM and NC
Past Surgical History: Reports Cardiac (stents), Orthopedic and Tonsilectomy
Social History
Tobacco: Former Smoker
Alcohol: None
Drug: None
Personal:
Living: With Family
Employment: Not Employed
Family History
Family History: Not pertinent
Allergies / Home Medications
Allergies reflects when Allergies were last updated in [employer].
Home Medications with original date entered in [employer]
Allergy/Medication List:
Allergies
Allergy/AdvReac Type Severity Reaction Status Date / Time
TONNY Inhibitors Allergy Cough Verified 06/27/24 12:54
Home Medications
finasteride 5 mg tablet 5 mg PO QPM urinary issue 04/02/14
multivitamin with minerals-ferrous sulfate 4.5 mg iron tablet (One Daily Multivitamins with Minerals) 1 tab PO DAILY supplement 04/02/14
tamsulosin 0.4 mg capsule 0.4 mg PO QPM urinary issue 04/02/14
insulin lispro 100 unit/mL subcutaneous pen (Humalog KwikPen (U-100) Insulin) 15 units SC AC diabetes 06/25/18
aspirin 81 mg tablet,delayed release 81 mg PO DAILY Blood Clot Prevention/Tx 06/02/24
insulin glargine 100 unit/mL subcutaneous solution (Lantus U-100 Insulin) 25 unit SC BID@1200,1900 diabetes 06/02/24
metoprolol tartrate 25 mg tablet 25 mg PO BID blood pressure 06/02/24
apixaban 5 mg tablet (Eliquis) 5 mg PO BID #60 tabs 06/07/24
acetaminophen 325 mg tablet (Tylenol) 650 mg PO Q4HPRN PRN fever 06/30/24
atorvastatin 80 mg tablet (Lipitor) 40 mg PO QPM 06/30/24
Review of Systems
-
History Source: Patient
A 12 point ROS was completed and negative except as noted: Yes
Constitutional: Reports No Symptoms
EENT: Reports No Symptoms
Respiratory: Reports No Symptoms
Cardiac: Reports No Symptoms
Abdomen/GI: Reports No Symptoms
: Reports No Symptoms
Musculoskeletal: Reports No Symptoms
Skin: Reports No Symptoms
Neurological: Reports No Symptoms
Endocrine: Reports No Symptoms
Hematologic/Lymphatic: Reports No Symptoms
Psych: Reports No Symptoms
Physical Exam
Vital Signs
Vital Signs
Temp Pulse Resp BP Pulse Ox
98.2 F 69 16 99/52 98
06/30/24 06:58 06/30/24 11:15 06/30/24 11:15 06/30/24 11:14 06/30/24 11:15
Physical Exam
General: No Apparent Distress, Comfortable and Obese
HEENT: NormoCephalic, Anicteric, Moist mucous membranes, Atraumatic, PERRLA and Other (Brownish discharge below right eye, scleral injection to the right eye. EOMI on exam)
Respiratory: Clear and Non Labored Respirations; No Wheezes, Rales, Rhonchi or Accessory Resp Muscle Use
Cardiac: S1/S2 and Irregular Rhythm; No Murmur, Rub, Gallop, Peripheral Edema or JVD
GI: Soft, Non Tender, Non Distended, Normal Bowel Sounds and No Hepatosplenomegaly
Musculoskeletal: No Clubbing, No Cyanosis, No Edema and Normal Gait & Station
Skin: Warm and Dry; No Rash or Jaundice
Neuro: AO x 3, No Motor Deficits, Nonfocal/grossly intact, Cranial Nerves Intact, No Sensory Deficits and DTR's Intact & Symmetrical; No Slurred Speech, Facial Droop or Tremors
Hematologic/Lymphatic: No Lymphadenopathy
Psych: Calm
Laboratory Results
-
06/30/24 07:12
06/30/24 07:12
Laboratory Results
PT 24.4 Sec (11.4-14.6) H 06/30/24 07:14
INR 2.17 06/30/24 07:14
APTT 39.1 Sec (23.4-35.0) H 06/30/24 07:14
Total Bilirubin 3.9 mg/dl (0.2-1.3) H 06/30/24 07:12
AST 207 U/L (17-59) H 06/30/24 07:12
ALT 95 U/L (0-50) H 06/30/24 07:12
Alkaline Phosphatase 945 U/L (38-126) H 06/30/24 07:12
Data Reviewed
-
CT Scan: Report Reviewed by me and Discussed with Patient
MRI: Discussed with Patient
Lab Data: Labs Reviewed by me and Discussed with Patient
Impression/Plan
-
#Strokelike symptoms -- ABCD 2 score 5-6, high risk for future CVA
#Transient right hemiplegia
-Differential diagnoses include TIA versus CVA, syncope from hypotension; less likely brain metastases or cardiac
-Presented with right arm and leg weakness noted by his and daughter
-Symptoms did improve following IV fluids given by EMS, NIHSS 0 on arrival
-Was recently in the ED for similar symptoms that also improved following IV fluid
-On arrival blood pressure 99/52 despite fluid resuscitation, no residual FND noted on exam
-Neurology following
Plan
-Continue with home aspirin, high intensity statin, DOAC for now
-Order MRI brain without contrast to assess for CVA
-Order orthostatic vital signs, consider midodrine 2.5 TID
-Continue with neurochecks every 4 hours
-Additional stroke workup including TTE, CTA head and neck if MRI positive
-PT/OT consult
-Monitor on telemetry
#Acute normocytic anemia
-Differentials include occult GI bleeding, nutritional deficiency, worsening AoCD; less likely hemolysis but does have chronic increased LFTs
-Hemoglobin 9.4 today, 10.8 in ED a few days ago, normal prior to that
-Normocytic cell volumes with elevated RDW; platelet counts normal
-Suspect a degree of hemoconcentration as well due to his hypovolemic state
Plan
-Order iron panel, B vitamin panel, reticulocyte index, and smear
-Order Hemoccult to assess for underlying GI bleed
-Trend CBC closely, transfuse for hemoglobin <7 or new symptoms
-Consider type and screen, consent, holding AC if worsening
-Consider heme/onc consult
#Mild prerenal acute kidney injury
-Creatinine baseline 0.9, creatinine here 1.3, hypovolemic on arrival
-By technicality his creatinine bumped does qualify him for acute kidney
-He is already received IV fluids, no utility to urine studies at this point
-Continue IVF and trend BMP
#Hypovolemic hyponatremia
-Presented with soft blood pressure, hypovolemic appearance, serum sodium 133
-Will treat empirically with IV fluids and monitor BMP closely
-Consider urine sodium, urine Osm, Serum Osm if not improving
#Elevated LFTs
-Has chronically elevated LFTs in context of liver metastasis from pancreatic cancer
-Transaminases and ALP near baseline, T. bili is slightly above previous levels
-Will continue to trend LFTs daily for now
#Leukocytosis
-White count 13.2 on arrival with neutrophilic predominance
-Suspect that this is related to his cancer, has been elevated in the past
-No fevers or obvious infectious symptoms as of now
-Will continue to trend CBC and temperature curve, defer antibiotics
#Stage IV pancreatic adenocarcinoma with liver metastasis
-Planning to start chemotherapy regimen though not as of yet, was planned to start tomorrow
-Biopsy with poorly differentiated adenocarcinoma; negative MSI�H; positive CA 19-9, CK19, CK7 and CK20; TTF�1, SATB2, CDX2 2 negative
-Has known liver metastases with chronically elevated LFTs
-Follows with [facility]
#IDDM
-Last A1c 7.2%; no known history of microvascular complications or significant CAD/PAD
-Home regimen includes 25 units insulin glargine twice daily, 15 units lispro with meals
-Will continue with home regimen and start ISS with Accu-Cheks for additional coverage
-Monitor for hypoglycemia, blood glucose goal 180�220
#Hypertension
-No known history of hypertensive systemic disease
-Home medications include metoprolol to tartrate 25 mg twice daily, no first-line agent
-Blood pressure currently soft here, will continue with metoprolol for now with hold parameters
#CAD S/P PCI
#Dyslipidemia
-Home medications include beta-dari, aspirin, high intensity statin
-Suspect that diabetic status and history of hypertension are also contributory to CAD
-No signs or symptoms of coronary ischemia at this time
#BPH
-Home medications include finasteride and tamsulosin
-Suspect tamsulosin may be contributing to orthostasis
-Consider discontinuing tamsulosin patient would tolerate
#H/O splenic infarct
-Unclear etiology though may be related to hypercoagulable state from malignancy
-Recent labs here did not show any hypercoagulable workup, he is fairly low risk outside of his cancer
-Remains on Eliquis 5 mg twice daily
DVT prophylaxis: Eliquis
Diet: Regular
CODE STATUS: Full Code
I will be admitting eDmond Velazco to telemetry for workup of transient neurological deficits. He is at high risk of further morbidity and mortality from acute cerebrovascular ischemia with elevated ABCD score correlating to risk. He will require
intensive monitoring of his neurological status and vital signs. He will require MRI brain to rule out CVA, IV fluids and potential titration onto regimen for orthostasis. I have spoke with ED physician in order to facilitate care for this patient.
--- NOTE | 2024-06-30 13:49 | CON.NEURO4 ---
Consultation - Neurology 4
-
CONSULTING PHYSICIAN: Dio Burnett MD, neurology
REFERRING PHYSICIAN: Hospitalist
DICTATED BY: Dio Brunett MD
DATE/TIME OF REQUEST: June 30 2024
DATE/TIME OF CONSULTATION: 06/30/2024
Reason for Consultation: Weakness
History of Present Illness:
This is a 74 year old male who has presented to the hospital ER with (chief complaint) of altered mental status. He gives a history of IDDM, HTN, HLD, CAD s/p PCI, stage IV pancreatic cancer (mets to liver, follows with [facility]), orthostatic
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
Today he had weakness on the right side 1 to 2 hours previous to arrival. Upon arrival to the ED today he was found to be hypotensive and received IV fluids. He denied any pain today. As per ED, stated that during the episode his right arm and
leg became weak/flaccid. Symptoms did improve subsequently, prior to the arrival in the emergency department. .
He was seen here in the emergency department 3 days ago with similar complaints that resolved with IV fluids.
Upon my evaluation, he has mild weakness in his Right extremities. His symptoms on 06/27 were different than today, not as severe and more localized to his legs than upper extremity. They state that they do not think he passed out, but looks like
he 'nodded off'. His family also complains of some discharge from the right eye,
ED labs showed serum sodium 133, BUN 38, creatinine 1.3, T. bili 3.9, AST 207, ALT 95, ALP 945, hemoglobin 9.4, WBC 13.2. CT head without contrast showed no acute findings of ICH or CVA, did show global encephalomalacia and possible 2 mm scalp
hematoma. Neurology evaluated patient in ED and recommended admission for MRI/TIA workup. He was started on IV fluids in the ED.
Patient denies hematochezia, melena, hematemesis. Denies chest pain, dyspnea, palpitations. Denies fevers or chills. States he does have some dizziness/lightheadedness with positional changes that has been present for some time.
He denies eye pain, blurry vision, pruritus. States that he awoke like that. He has not had any chemotherapy sessions, was scheduled to start them with oncology on 07/01/24.
Past Medical History: Coronary disease with [place] hypertension hypercholesterolemia insulin-dependent diabetes pancreatic cancer
Surgical History: Tonsillectomy orthopedic procedures cardiac stent
Family History: Noncontributory
Social History: Retired quit smoking lives at home
Allergies: TONNY inhibitors
Home Medications: See addendum
Review of Symptoms: 13 systems are reviewed as noted above. Jaundice
�-
Vital Signs:
The patient has a Temp 36.8 C Pulse 71 Resp17 BP100/56 Pulse Ox 98
Physical Exam:
The patient is afebrile, heart sounds S1 and S2 are regular, and chest is clear to auscultation bilaterally. Jaundice
Neurologic Examination:
The patient is a awake used and oriented x none. (He is unable to follow commands or interact or answer questions appropriately. He is no aphasic.
On cranial nerve assessment, he appreciates visual threats pupils are 3 mm bilateral, round and reactive to light and accommodation.. Extraocular movements are impaired. Facial sensations are impaired ,
there is mild facial asymmetry. Hearing is impaired bilaterally to normal conversation volume. Tongue palate and uvula are midline. Sternocleidomastoid strengths are full bilaterally.
Motor strengths are 5/5 bilateral upper and lower extremities on medical research Rosser scale. There is no drift or involuntary movement noted.
Deep tendon reflexes are + bilateral upper and lower extremities and Babinski is absent bilaterally. Sensations of pain, touch, temperature and vibration are intact and bilaterally symmetrical. There was no extinction noted on double simultaneous
stimulation. Coordination is intact by finger to nose bilaterally. Romberg's and gait was not tested as patient is bedbound
Lab Results: Addendum
Neuro Imaging: CT head revealed diffuse cortical atrophy with focus of right frontal lobe encephalomalacia, extensive white matter disease , ventriculomegaly.
Impression: Mr. SHARI HERRMANN is a 74 year old M who has presented to the hospital with (symptoms/chief complaint) Of right-sided weakness that is improving
Differentials for the patient's presentation include:
1. CVA
2. Hypotension
3. Paraneoplastic syndrome hypercoagulability
Recommendations:
1. IV fluids
2. PT/OT
3. Speech therapy to evaluate
4. Aspirin 325 mg followed by 81 mg maintenance
5. Fluid and nutritional support
6 Mean arterial pressure at 100.
7. Eliquis 5 mg twice daily
8. Maintain blood glucose> 100 < 150
Discussed patient care with: Hospitalist
Allergies
-
Allergies
Allergy/AdvReac Type Severity Reaction Status Date / Time
TONNY Inhibitors Allergy Cough Verified 06/27/24 12:54
Vital Signs and Labs
-
Vital Signs and Labs:
Vital Signs
Temp Pulse Resp BP Pulse Ox
36.8 C 71 17 100/56 98
06/30/24 06:58 06/30/24 12:45 06/30/24 12:45 06/30/24 12:00 06/30/24 12:45
Lab Results
06/30/24 07:12
06/30/24 07:12
PT 24.4 Sec (11.4-14.6) H 06/30/24 07:14
INR 2.17 06/30/24 07:14
APTT 39.1 Sec (23.4-35.0) H 06/30/24 07:14
Sodium 133 mmol/L (135-145) L 06/30/24 07:12
Potassium 4.5 mmol/L (3.5-5.1) 06/30/24 07:12
BUN 38 mg/dl (9-20) H 06/30/24 07:12
Glucose 191 mg/dl (70-99) H 06/30/24 07:12
Calcium 8.2 mg/dl (8.4-10.2) L 06/30/24 07:12
Medications
-
Active Medications
Generic Name Dose Route Start Last Admin
Trade Name Freq PRN Reason Stop Dose Admin
Bisacodyl 10 mg 06/30/24 12:39
Bisacodyl 10 Mg Rectal Suppository RECTAL 07/28/24 12:38
[id number] PRN
constipation
Lactated Ringer's 1,000 mls @ 100 mls/hr 06/30/24 13:00
Lr IV
.Q10H CLARI
Polyethylene Glycol 17 grams 06/30/24 12:39
Polyethylene Glycol Powder 17 Grams Packet PO 07/28/24 12:38
DAILYPRN PRN
constipation
Senna/Docusate Sodium 1 tablet 06/30/24 12:39
Docusate W/Senna (Melissa-Colace) Tablet PO 07/28/24 12:38
BIDPRN PRN
constipation
Home Medications
�Medication �Instructions �Recorded
finasteride 5 mg tablet 5 mg PO QPM urinary issue 04/02/14
multivitamin with minerals-ferrous 1 tab PO DAILY supplement 04/02/14
sulfate 4.5 mg iron tablet (One
Daily Multivitamins with Minerals)
tamsulosin 0.4 mg capsule 0.4 mg PO QPM urinary issue 04/02/14
insulin lispro 100 unit/mL 15 units SC AC diabetes 06/25/18
subcutaneous pen (Humalog KwikPen
(U-100) Insulin)
aspirin 81 mg tablet,delayed 81 mg PO DAILY Blood Clot 06/02/24
release Prevention/Tx
insulin glargine 100 unit/mL 25 unit SC BID@1200,1900 diabetes 06/02/24
subcutaneous solution (Lantus
U-100 Insulin)
metoprolol tartrate 25 mg tablet 25 mg PO BID blood pressure 06/02/24
apixaban 5 mg tablet (Eliquis) 5 mg PO BID #60 tabs 06/07/24
acetaminophen 325 mg tablet 650 mg PO Q4HPRN PRN fever 06/30/24
(Tylenol)
atorvastatin 80 mg tablet (Lipitor) 40 mg PO QPM 06/30/24
[2024-06-30] MEDS: LR 1000 IV ×2 (14:33→23:53)
--- NOTE | 2024-06-30 16:48 | PTCARENOTE ---
Received patient from ED via stretcher. AAOx3, pulled over from stretcher to bed. Assessed and oriented to room. Family at bedside. Call carbajal in close reach.
[2024-06-30 16:54] LABS: Glucose - Point of Care 255 mg/dl (70-99)
[2024-06-30] MEDS: LIPITOR 40 MG PO (17:30)
[2024-06-30] MEDS: PROSCAR 5 MG PO (17:30)
[2024-06-30] MEDS: FLOMAX 0.4 MG PO (17:30)
[2024-06-30] MEDS: NOVOLOG FLEXPEN 15 UNITS SC (17:30)
[2024-06-30] MEDS: ASPIRIN ENTERIC COATED 325 MG PO (18:40)
[2024-06-30] MEDS: CILOXAN 0.3% OPHTHALMIC SOLUTION 2 DROP OPHTH ×3 (18:41→23:54)
[2024-06-30 19:44] LABS: Glucose - Point of Care 263 mg/dl (70-99)
[2024-06-30] MEDS: ELIQUIS 5 MG PO (20:51)
[2024-06-30] MEDS: LANTUS 0.25 UNITS SC (20:51)
[2024-06-30] MEDS: LOPRESSOR 25 MG PO (20:52)
[2024-07-01] VITALS (8 sets, daily range): BP systolic 112–130; BP diastolic 50–65; PULSE 77–81; O2SAT 97
[2024-07-01] MEDS: CILOXAN 0.3% OPHTHALMIC SOLUTION 2 DROP OPHTH (03:06)
[2024-07-01 03:18] LABS: % Basophils 0.2 % (0-2); % Eosinophils 0.9 % (0-6); % Immature Granulocytes 0.7 % (0-0.5); % Lymphocytes 8.2 % (20.5-51.1); Absolute Eosinophils 0.1 10^3/uL (0-0.7); Absolute Immature Granulocytes 0.1 10^3/uL (0-0.05); Absolute Lymphocytes 1.1 10^3/uL (1.2-3.4); Absolute Monocytes 1.5 10^3/uL (0.1-0.6); Absolute Neutrophils 10.9 10^3/uL (1.4-6.5); Hematocrit 29.5 % (39.0-52.0); Mean Corp Hgb Conc. 33.9 g/dL (33.0-37.0); Mean Corpuscular Hgb 28.3 pg (27.0-31.0); Mean Corpuscular Volume 83.6 fL (80.0-94.0); Mean Platelet Volume 9.4 fL (7.4-10.4); Nucleated Red Blood Cells % 0 % (-); Platelet Count 280 10^3/uL (130-400); Red Blood Cell Count 3.53 10^6/uL (4.70-6.10); Red Cell Dist. Width 16.2 % (11.5-14.5); White Blood Cell Count 13.8 10^3/uL (4.8-10.8)
[2024-07-01 03:19] LABS: Hematocrit 29.1 % (39.0-52.0); Hemoglobin 9.8 g/dL (13.0-18.0); Mean Corp Hgb Conc. 33.7 g/dL (33.0-37.0); Mean Corpuscular Hgb 27.2 pg (27.0-31.0); Mean Corpuscular Volume 80.8 fL (80.0-94.0); Mean Platelet Volume 9.2 fL (7.4-10.4); Platelet Count 296 10^3/uL (130-400); Red Cell Dist. Width 16.2 % (11.5-14.5); White Blood Cell Count 13.8 10^3/uL (4.8-10.8)
[2024-07-01 03:26] LABS: Fibrinogen 536 MG/DL (199-459); INR 1.97; PT 22.6 Sec (11.4-14.6)
[2024-07-01 03:27] LABS: APTT 37.3 Sec (23.4-35.0)
[2024-07-01 03:50] LABS: Reticulocyte Count 2.6 % (0.4-2.8)
[2024-07-01 04:00] LABS: ALT (SGPT) 114 U/L (0-50); AST (SGOT) 267 U/L (17-59); Albumin 2.3 g/dl (3.5-5.0); Alkaline Phosphatase 1084 U/L (38-126); Blood Urea Nitrogen 40 mg/dl (9-20); Calcium 8.4 mg/dl (8.4-10.2); Carbon Dioxide 21 mmol/L (22-30); Chloride 103 mmol/L (98-107); Direct Bilirubin 3.4 mg/dl (0.0-0.4); Estimated Creatinine Clearance 57 ml/min; Glucose 227 mg/dl (70-99); Iron 41 ug/dl (49-181); LDH 847 U/L (120-246); Magnesium 2.3 mg/dl (1.6-2.3); Potassium 4.7 mmol/L (3.5-5.1); Sodium 133 mmol/L (135-145); Total Bilirubin 4.2 mg/dl (0.2-1.3); Total Protein 5.1 g/dl (6.3-8.2); eGFR > 60.00
[2024-07-01 04:09] LABS: Percent Saturation 23 % (20-50); Total Iron Binding Capacity 173 ug/dl (261-462)
[2024-07-01 05:23] LABS: Vitamin B12 > 1000 pg/ml (239-931)
[2024-07-01 08:24] LABS: Glucose - Point of Care 204 mg/dl (70-99)
[2024-07-01] MEDS: CILOXAN 0.3% OPHTHALMIC SOLUTION 1 DROP OPHTH ×4 (08:28→21:05)
[2024-07-01] MEDS: THERAGRAN 1 TABLET PO (08:28)
[2024-07-01] MEDS: ASPIR LOW (ENTERIC COATED) 81 MG PO (08:28)
[2024-07-01] MEDS: LOPRESSOR 25 MG PO ×2 (08:28→21:04)
[2024-07-01] MEDS: ELIQUIS 5 MG PO (08:28)
[2024-07-01] MEDS: NOVOLOG FLEXPEN 5 UNITS SC (08:28)
--- NOTE | 2024-07-01 11:01 | W.PN.HOSP.TC ---
Addendum entered and electronically signed by Brodie Negrete DO 07/01/24 16:51:
Pt. requires lightweight wheelchair d/t ambulatory dysfunction. pt is unable to self propel in a standard w/c. Walker has been considered but is clinically ineffective due to pt's condition
Original Note:
Today's Communication/Plan
-
Continue with aspirin/Eliquis/statin
Consider oncology consult for new brain metastasis
Consider transitioning Eliquis to Lovenox 1 mg/kg twice daily
Ordered TTE with microbubble study, continue telemetry
Assessment / Plan
Assessment / Plan
#Acute CVA -- embolic pattern; question Eliquis failure versus in situ thrombi
#Brain metastases of pancreatic cancer
#Right upper and lower extremity weakness
-Presented as right-sided extremity weakness, improved with some residual deficits on arrival (4/5 MMS)
-CT and CTA in the ED were unremarkable; MRI with and without contrast shows brain mets and diffuse small strokes
-Difficult to ascertain if strokes or metastases are causing symptoms; remains on Eliquis for previous splenic infarct
-Continues to have 4/5 muscle motor strength to the lower extremities, no new deficits overnight
-Neurology following, will reach out to oncology as well
Plan
-Order TTE with bubble study, continuing to monitor on telemetry
-Continue with home aspirin, high intensity statin, DOAC for now
-Continue with supportive IV fluids and MAP goal >100
-Continue with neurochecks and NIHSS every 4 hours
-Consideration of switching DOAC to Lovenox for AC
#Right bacterial conjunctivitis
-Presented with red injected eye, purulent discharge; denied symptoms of pain or pruritus, vision disturbance
-Currently receiving 3-day course of ciprofloxacin eyedrops empirically
-Seems improved today
#Acute normocytic anemia
-Differentials include occult GI bleeding, nutritional deficiency, worsening AoCD
-Hemoglobin 9.4 today, 10.8 in ED a few days ago, normal prior to that
-Normocytic cell volumes with elevated RDW; platelet counts normal
-Iron studies consistent with anemia of chronic disease
-Hemoglobin stable x 3 lab draws here, will continue to monitor
#Mild prerenal acute kidney injury
-Creatinine baseline 0.9, creatinine here 1.3, hypovolemic on arrival
-By technicality his creatinine bumped does qualify him for acute kidney
-He is already received IV fluids, no utility to urine studies at this point
-Continue IVF and trend BMP
#Hypovolemic hyponatremia
-Presented with soft blood pressure, hypovolemic appearance, serum sodium 133
-Will treat empirically with IV fluids and monitor BMP closely
-Serum chemistries have been stable, serum sodium remains at 133
-Consider urine sodium, urine Osm, Serum Osm if worsening
#Elevated LFTs
-Has chronically elevated LFTs in context of liver metastasis from pancreatic cancer
-Transaminases and ALP near baseline, T. bili is slightly above previous levels
-Will continue to trend LFTs daily for now
#Leukocytosis
-White count 13.2 on arrival with neutrophilic predominance
-Suspect that this is related to his cancer, has been elevated in the past
-No fevers or obvious infectious symptoms as of now
-Will continue to trend CBC and temperature curve, defer antibiotics
#Stage IV pancreatic adenocarcinoma with liver and brain metastasis
-Planning to start chemotherapy regimen though not as of yet, was planned to start tomorrow
-Biopsy with poorly differentiated adenocarcinoma; negative MSI�H; positive CA 19-9, CK19, CK7 and CK20; TTF�1, SATB2, CDX2 2 negative
-Has known liver metastases with chronically elevated LFTs; MRI here showing new brain metastases
-Follows with [facility]
#IDDM
-Last A1c 7.2%; no known history of microvascular complications or significant CAD/PAD
-Home regimen includes 25 units insulin glargine twice daily, 15 units lispro with meals
-Will continue with home insulin and start ISS with Accu-Cheks for additional coverage
-Monitor for hypoglycemia, blood glucose goal 100-200
#Hypertension
-No known history of hypertensive systemic disease
-Home medications include metoprolol to tartrate 25 mg twice daily, no first-line agent
-Blood pressure currently soft here, will continue with metoprolol for now with hold parameters
#CAD S/P PCI
#Dyslipidemia
-Home medications include beta-dari, aspirin, high intensity statin
-Suspect that diabetic status and history of hypertension are also contributory to CAD
-No signs or symptoms of coronary ischemia at this time
#BPH
-Home medications include finasteride and tamsulosin
-Suspect tamsulosin may be contributing to orthostasis
-Consider discontinuing tamsulosin patient would tolerate
#H/O splenic infarct
-Unclear etiology though may be related to hypercoagulable state from malignancy
-Recent labs here did not show any hypercoagulable workup, he is fairly low risk outside of his cancer
-Remains on Eliquis 5 mg twice daily
DVT prophylaxis: Eliquis
Diet: Regular
CODE STATUS: Full Code
Anticipated Discharge: > 48 hours
Subjective/Interval History
-
Date of Service: July 01, 2024
Seen and examined at bedside. No acute events overnight. AFVSS this morning, blood pressure improved with addition
His MRI with and without contrast did not show evidence of diffuse brain metastases, diffuse infarctions as well. Continues to have mild weakness of the right upper and lower extremity, 4/5 on exam. Stable from yesterday.
He denies any new acute complaints. Denies chest pain, shortness of breath, palpitations, fevers or chills, GI upset, urinary issues, bleeding or bruising, paresthesias or aphasia
Objective Data
-
Labs:
Laboratory Results
07/01/24 07/01/24 07/01/24
03:06 03:06 03:06
WBC 13.8 H 13.8 H
Hgb 9.8 L 10.0 L
Hct 29.1 L
Plt Count
PT
INR
APTT
Sodium
Potassium
Chloride
Carbon Dioxide
BUN
Creatinine
Glucose
Calcium
Total Bilirubin
AST
ALT
Alkaline Phosphatase
07/01/24 07/01/24
03:06 03:06
WBC
Hgb
Hct 29.5 L
Plt Count 296 280
PT 22.6 H
INR 1.97
APTT 37.3 H
Sodium 133 L
Potassium 4.7
Chloride 103
Carbon Dioxide 21 L
BUN 40 H
Creatinine 1.2
Glucose 227 H
Calcium 8.4
Total Bilirubin 4.2 H
AST 267 H
ALT 114 H
Alkaline Phosphatase 1084 H
Vital Signs:
Vital Signs
Temp Pulse Resp BP Pulse Ox
97.7 F 81 18 114/80 98
07/01/24 07:30 07/01/24 08:28 07/01/24 07:30 07/01/24 08:28 07/01/24 07:30
I&O
06/30/24 07/01/24 07/02/24
06:59 06:59 06:59
Intake Total 1679 / 1679
Balance 1679 / 168
Review of Systems
-
History Source: Patient
All other systems: Reviewed and negative
Physical Exam
-
General: Well Nourished, No Apparent Distress and Comfortable
HEENT: Normocephalic, Atraumatic, Moist Mucous Membranes and Other (Mild scleral icterus)
Respiratory: Clear to Auscultation and Non Labored Respirations; Negative Wheezes, Rales or Rhonchi
Cardiac: Regular Rhythm and S1/S2; Negative Murmur, Rub or Gallop
GI: Soft, Nontender, Nondistended and Normal Bowel Sounds
Musculoskeletal: No Clubbing, No Cyanosis and No Edema
Skin: Warm, Dry and Jaundice; Negative Rash
Neuro: AO x 3, Central Nerve's Intact, No Sensory Deficits and Other (4/5 MMS to right upper and lower extremity, right lower extremity drift); Negative Tremors, Slurred Speech or Facial Droop
Psych: Calm
Data Reviewed
-
MRI: Report Reviewed by me and Discussed with Patient
[2024-07-01 11:40] LABS: Glucose - Point of Care 225 mg/dl (70-99)
--- NOTE | 2024-07-01 11:43 | W.PN.NEURO.1 ---
Today's Communication / Plan
-
Pat may be discharged on Eliquis/Lovenox
Follow up with [facility]
Neuro Assessment/Plan
Assessment
74 yr. old male with h/o pancreatic cancer who had altered mentation with right sided weakness secondary to Embolic CVA/ELECTRICIAN LOCOMOTIVE metastasis
Plan
Continue Eliquis
Oncology follow up @[facility]
Subjective/Objective
Subjective Data
Date of Service: July 01, 2024
Pat is awake and alert oriented to person and place. Interacts with family and nursing staff without issues
Objective Data
Vital Signs
Temp Pulse Resp BP Pulse Ox
36.9 C 71 20 112/58 96
07/01/24 11:27 07/01/24 11:27 07/01/24 11:27 07/01/24 11:27 07/01/24 11:27
Lab Results
07/01/24 03:06
07/01/24 03:06
PT 22.6 Sec (11.4-14.6) H 07/01/24 03:06
INR 1.97 07/01/24 03:06
APTT 37.3 Sec (23.4-35.0) H 07/01/24 03:06
Sodium 133 mmol/L (135-145) L 07/01/24 03:06
Potassium 4.7 mmol/L (3.5-5.1) 07/01/24 03:06
BUN 40 mg/dl (9-20) H 07/01/24 03:06
Glucose 227 mg/dl (70-99) H 07/01/24 03:06
Calcium 8.4 mg/dl (8.4-10.2) 07/01/24 03:06
Vitamin B12 > 1000 pg/ml (239-931) H 07/01/24 03:06
Patient Allergies
TONNY Inhibitors Allergy (Verified 06/27/24 12:54)
Cough
Physical Exam
-
General: Well Developed and Appears Chronically Ill
Eyes: Able to visualize OU, Unremarkable and Round OU
HEENT: Normocephalic, Atraumatic and Other (jaundice)
Neck: No Bruits Bilaterally and Full Range of Motion
Respiratory: Clear to Auscultation
Extremities: No Clubbing, No Cyanosis and No Edema
Psych: Confused
Extended Neurological Exam
Mood & Affect: Anxious
Attention Span & Concentration: Awake, Interactive and Mild Difficulty with 2 Step Request
Memory: Reduced
Tremor: Hand Tremor Absent and Head Tremor Absent
Involuntary Movement: None
Speech: Mildly Reduced Output
Cranial Nerve II: Left Eye: Pupillary Reactivity Unremarkable, Pupillary Size Unremarkable and Visual Casanova Grossly Intact
Cranial Nerve II: Right Eye: Pupillary Reactivity Unremarkable, Pupillary Size Unremarkable and Visual Casanova Grossly Intact
Cranial Nerves III, IV, : Extraocular Movement: Extraocular Movement Full in all Directions
Cranial Nerve V: Facial Sensation: Intact to Light Touch
Cranial Nerve VII: Facial Symmetry: Normal Facial Symmetry
Cranial Nerve VIII: Hearing: Unremarkable Hearing to Normal Conversational Volume
Cranial Nerves IX, X: Palate Movement: Palate Elevation Symmetric
Cranial Nerve XI: Shoulder Shrug: Unremarkable
Cranial Nerve XII: Tongue Protusion: Midline
Muscle Strength, Overall: Reduced on Right
Muscle Bulk & Tone: Bulk Unremarkable and Tone Unremarkable
Pronator Drift: Drift in Right Upper Extremity
Deep Tendon Reflexes: Unremarkable Throughout
Cold Sensation: Reduced Mildly Distally
Vibration Sensation: Unable to Assess
Touch Sensation: Location of deficit and Withdrawal to Pain
Coordination: Reaches for Objects without Difficulty
Babinski Sign: Present on Right
Gait & Station: Up from Seated Without Problem
Modified Shoshone Score (MRS)
-
Modified Shoshone Scale (mRS): Moderately severe disability. Unable to attend to bodily needs/walk.
Score: 4
Data Reviewed
-
MRI Head: Image Reviewed (MRI Brain reveals multiple lesions bilaterally metastatic and embolic infarctions.)
[2024-07-01] MEDS: LANTUS 0.25 UNITS SC ×2 (12:02→21:04)
[2024-07-01] MEDS: NOVOLOG FLEXPEN 15 UNITS SC ×2 (12:04→17:45)
[2024-07-01] MEDS: LR 1000 IV ×2 (12:06→21:05)
--- NOTE | 2024-07-01 15:57 | W.PN.UPDATE ---
Update Note
Progress Note Update
I spoke with the patient's primary oncologist at [facility], Doctor Waters, and updated her on the patient's current condition. I spoke with her about choice of anticoagulation due to finding of acute CVA while on Eliquis. Recommended switching to
Lovenox 1 mg/kg versus Pradaxa. I spoke with the patient about preference, including bleeding risk being higher and Pradaxa and need for self injections with Lovenox. Patient and family are at bedside, have selected for Lovenox 1 mg/kg.
Discontinued Eliquis, will start Lovenox regimen tonight.
[2024-07-01 16:31] LABS: Glucose - Point of Care 224 mg/dl (70-99)
--- NOTE | 2024-07-01 16:33 | CM ---
CM met with Sridhar, his and 2 adult children. Typically Sridhar and his live in the home, adult children are visiting.
They live in a ranch style home with 2 entry step; RW with a seat. Pt has required more assistance with activity and completes all homemaking duties.
Referral made to [facility] for RN, PT, OT, and REGULATORY COORDINATOR; W/C needed per MD.
CM will continue to follow for discharge to home when medically ready.
Plan: Discharge to [facility] with [facility].
PCP: Gaurav Pitts
Pharmacy: [facility] in [place]
--- NOTE | 2024-07-01 16:40 | VNURNOTE ---
Attempted to meet with pt and at bedside. Patient was on commode. Home Health Liaison called & spoke with to discuss [facility] nurse/therapy, visits, schedule and homebound status. She is agreeable and understands that visits at home will be
2-3 x per week to assess and teach medical management. [facility] brochure left on pt's hospital room door with contact information. Spouse is aware that [facility] will contact them for start of care in 1-2 days after discharge from . Spouse requesting
transport w/c as patient is having increased difficulty with rollator at home. Requested med necessity note from hospitalist. Transport wheelchair to be set up. Tentative DC in 48hr.
[facility] referral completed in [facility].
[2024-07-01] MEDS: PROSCAR 5 MG PO (17:11)
[2024-07-01] MEDS: FLOMAX 0.4 MG PO (17:11)
[2024-07-01] MEDS: LIPITOR 40 MG PO (17:11)
[2024-07-01] MEDS: LOVENOX 100 MG SC (21:04)
[2024-07-01 21:10] LABS: Glucose - Point of Care 164 mg/dl (70-99)
[2024-07-02] MEDS: CILOXAN 0.3% OPHTHALMIC SOLUTION OPHTH ×2 (00:36→03:46)
[2024-07-02] MEDS: LIDOCAINE URO-JET 2% 1 SYRINGE TOPICAL (00:36)
[2024-07-02 01:01] LABS: Urine Albumin 1+ (Neg - Trace); Urine Bilirubin 2+ (Negative); Urine Character Slightly Cloudy (Clear); Urine Color Amber; Urine Glucose Negative (Negative); Urine Ketone Negative (Negative); Urine Leukocyte Trace (Negative); Urine Nitrite Negative (Negative); Urine Occult Blood 4+ (Negative); Urine Urobilinogen 3+ (Neg - 1+)
[2024-07-02 01:23] LABS: Urine Amorphous Seen; Urine Mucus Many; Urine Squamous Cell >30 /LPF (Few)
[2024-07-02 01:24] LABS: Urine Bacteria Many (Negative); Urine Red Blood Cell >100 /HPF (0-2)
[2024-07-02 03:55] VITALS: BP 119/60
[2024-07-02] MEDS: LR 1000 IV (05:58)
[2024-07-02 07:29] VITALS: BP 119/63
[2024-07-02] MEDS: ASPIR LOW (ENTERIC COATED) 81 MG PO (08:00)
[2024-07-02] MEDS: LOPRESSOR 25 MG PO (08:00)
[2024-07-02] MEDS: THERAGRAN 1 TABLET PO (08:00)
[2024-07-02] MEDS: CILOXAN 0.3% OPHTHALMIC SOLUTION 1 DROP OPHTH ×2 (08:02→12:06)
[2024-07-02] MEDS: NOVOLOG FLEXPEN 15 UNITS SC ×2 (08:03→12:06)
[2024-07-02 08:04] LABS: Glucose - Point of Care 106 mg/dl (70-99)
[2024-07-02] MEDS: LOVENOX 100 MG SC (08:05)
[2024-07-02 08:06] LABS: % Basophils 0.2 % (0-2); % Eosinophils 1.2 % (0-6); % Immature Granulocytes 1.3 % (0-0.5); % Lymphocytes 9.2 % (20.5-51.1); % Monocytes 13.4 % (1.7-9.3); % Neutrophils 74.7 % (42.2-75.2); Absolute Eosinophils 0.2 10^3/uL (0-0.7); Absolute Immature Granulocytes 0.2 10^3/uL (0-0.05); Absolute Lymphocytes 1.2 10^3/uL (1.2-3.4); Absolute Monocytes 1.8 10^3/uL (0.1-0.6); Absolute Neutrophils 9.8 10^3/uL (1.4-6.5); Hematocrit 26.5 % (39.0-52.0); Hemoglobin 8.9 g/dL (13.0-18.0); Mean Corp Hgb Conc. 33.6 g/dL (33.0-37.0); Mean Corpuscular Hgb 26.9 pg (27.0-31.0); Mean Corpuscular Volume 80.1 fL (80.0-94.0); Mean Platelet Volume 9.6 fL (7.4-10.4); Nucleated Red Blood Cells % 0 % (-); Platelet Count 278 10^3/uL (130-400); Red Blood Cell Count 3.31 10^6/uL (4.70-6.10); Red Cell Dist. Width 16.1 % (11.5-14.5); White Blood Cell Count 13.1 10^3/uL (4.8-10.8)
[2024-07-02 08:31] LABS: ALT (SGPT) 106 U/L (0-50); AST (SGOT) 227 U/L (17-59); Alkaline Phosphatase 920 U/L (38-126); Blood Urea Nitrogen 37 mg/dl (9-20); Calcium 8.1 mg/dl (8.4-10.2); Carbon Dioxide 21 mmol/L (22-30); Chloride 104 mmol/L (98-107); Direct Bilirubin 3.6 mg/dl (0.0-0.4); Estimated Creatinine Clearance 63 ml/min; Glucose 104 mg/dl (70-99); Potassium 4.4 mmol/L (3.5-5.1); Sodium 135 mmol/L (135-145); Total Bilirubin 4.6 mg/dl (0.2-1.3); Total Protein 4.6 g/dl (6.3-8.2); eGFR > 60.00
--- NOTE | 2024-07-02 11:04 | W.PN.HOSP.TC ---
Today's Communication/Plan
-
Discharge home on full dose Lovenox
Assessment / Plan
Assessment / Plan
#Acute CVA -- embolic pattern; question Eliquis failure versus in situ thrombi
#Brain metastases of pancreatic cancer
#Right upper and lower extremity weakness
-Presented as right-sided extremity weakness, improved with some residual deficits on arrival (4/5 MMS)
-CT and CTA in the ED were unremarkable; MRI with and without contrast shows brain mets and diffuse small strokes
-Difficult to ascertain if strokes or metastases are causing symptoms; remains on Eliquis for previous splenic infarct
-Continues to have 4/5 muscle motor strength to the lower extremities; TTE was normal
-Neurology following, will reach out to oncology as well
-Transition DOAC to Lovenox for presumed Eliquis failure
Plan
-Continue with home aspirin, high intensity statin, Lovenox 1 mg/kg twice daily
-Continue with supportive IV fluids and MAP goal >100
-Continue with neurochecks and NIHSS every 4 hours
-Will provide physical therapy prescription at discharge
#Right bacterial conjunctivitis
-Presented with red injected eye, purulent discharge; denied symptoms of pain or pruritus, vision disturbance
-Currently receiving 3-day course of ciprofloxacin eyedrops empirically
-Seems improved today, plan to complete 3-day course
#Acute normocytic anemia
-Differentials include occult GI bleeding, nutritional deficiency, worsening AoCD
-Hemoglobin 9.4 today, 10.8 in ED a few days ago, normal prior to that
-Normocytic cell volumes with elevated RDW; platelet counts normal
-Iron studies consistent with anemia of chronic disease
-Hemoglobin stable
#Mild prerenal acute kidney injury
-Resolved with IV fluid
#Hypovolemic hyponatremia
-Resolved with IV fluid
#Elevated LFTs
-Has chronically elevated LFTs in context of liver metastasis from pancreatic cancer
-Transaminases and ALP near baseline, T. bili is slightly above previous levels
-Will continue to trend LFTs daily for now
#Leukocytosis
-White count 13.2 on arrival with neutrophilic predominance
-Suspect that this is related to his cancer, has been elevated in the past
-No fevers or obvious infectious symptoms as of now
-Will continue to trend CBC and temperature curve, defer antibiotics
#Stage IV pancreatic adenocarcinoma with liver and brain metastasis
-Planning to start chemotherapy regimen though not as of yet, was planned to start tomorrow
-Biopsy with poorly differentiated adenocarcinoma; negative MSI�H; positive CA 19-9, CK19, CK7 and CK20; TTF�1, SATB2, CDX2 2 negative
-Has known liver metastases with chronically elevated LFTs; MRI here showing new brain metastases
-Follows with [facility]
#IDDM
-Last A1c 7.2%; no known history of microvascular complications or significant CAD/PAD
-Home regimen includes 25 units insulin glargine twice daily, 15 units lispro with meals
-Will continue with home insulin and start ISS with Accu-Cheks for additional coverage
-Monitor for hypoglycemia, blood glucose goal 100-200
#Hypertension
-No known history of hypertensive systemic disease
-Home medications include metoprolol to tartrate 25 mg twice daily, no first-line agent
-Blood pressure currently soft here, will continue with metoprolol for now with hold parameters
#CAD S/P PCI
#Dyslipidemia
-Home medications include beta-dari, aspirin, high intensity statin
-Suspect that diabetic status and history of hypertension are also contributory to CAD
-No signs or symptoms of coronary ischemia at this time
#BPH
-Home medications include finasteride and tamsulosin
-Suspect tamsulosin may be contributing to orthostasis
-Consider discontinuing tamsulosin patient would tolerate
#H/O splenic infarct
-Unclear etiology though may be related to hypercoagulable state from malignancy
-Recent labs here did not show any hypercoagulable workup, he is fairly low risk outside of his cancer
-Remains on Eliquis 5 mg twice daily
DVT prophylaxis: Full dose Lovenox
Diet: Regular
CODE STATUS: Full Code
Anticipated Discharge: Today
Subjective/Interval History
-
Date of Service: July 02, 2024
Seen and examined at the bedside. No acute events overnight. AFVSS this morning.
His blood pressure is improved after IV fluids. Orthostatic vital signs yesterday negative. has concerns about possible worsening after discharge, will send a prescription of low-dose midodrine as needed with directions on how to initiate
dosing.
Patient otherwise denies all acute complaints, states he is ready to go home
Objective Data
-
Labs:
Laboratory Results
07/02/24
07:41
WBC 13.1 H
Hgb 8.9 L
Hct 26.5 L
Plt Count 278
Sodium 135
Potassium 4.4
Chloride 104
Carbon Dioxide 21 L
BUN 37 H
Creatinine 1.1
Glucose 104 H
Calcium 8.1 L
Total Bilirubin 4.6 H
AST 227 H
ALT 106 H
Alkaline Phosphatase 920 H
Vital Signs:
Vital Signs
Temp Pulse Resp BP Pulse Ox
99.1 F 86 18 119/63 98
07/02/24 07:29 07/02/24 08:00 07/02/24 07:29 07/02/24 08:00 07/02/24 07:29
I&O
07/01/24 07/02/24 07/03/24
06:59 06:59 06:59
Intake Total 1680 / 1680 780 / 780 960 / 960
Output Total 1050 / 1050
Balance 1680 / 1680 -270 / -270 960 / 960
Review of Systems
-
History Source: Patient
All other systems: Reviewed and negative
Physical Exam
-
General: Well Nourished, No Apparent Distress, Comfortable and Appears Chronically Ill
HEENT: Normocephalic, Atraumatic and Moist Mucous Membranes; Negative Anicteric
Respiratory: Clear to Auscultation and Non Labored Respirations; Negative Wheezes, Rales or Rhonchi
Cardiac: Regular Rhythm and S1/S2; Negative Murmur, Rub or Gallop
GI: Soft, Nontender, Nondistended and Normal Bowel Sounds
Musculoskeletal: No Clubbing, No Cyanosis and No Edema
Skin: Warm and Dry; Negative Rash or Normal Turgor
Neuro: AO x 3, No Sensory Deficits, DTR's Intact & Symmetrica and Other (4+/5 right extremity MMS); Negative Tremors, Slurred Speech or Facial Droop
Psych: Calm
Data Reviewed
-
Labs: Labs Reviewed by me and Discussed with Patient
--- NOTE | 2024-07-02 11:14 | W.DCSUMMARY ---
Discharge Summary
Discharge Data
Date of Admission: 06/30/24
Date of Discharge: 07/02/24
-
Pending Results: No
Hospital Course
74-year-old male with stage IV pancreatic cancer with liver metastases, CAD s/p PCI, hypertension, hyperlipidemia that presented to the hospital with acute weakness of his right upper and lower extremities. Was seen in the ED previously with
similar symptoms though described bilateral lower extremity weakness at that time. Initial CT head without contrast unremarkable for acute findings. CTA head and neck also without signs of large vessel occlusion or other acute findings. MRI brain
with and without contrast was performed, showed evidence of small multifocal infarcts with embolic pattern. Also demonstrated signs of brain metastases from his pancreatic cancer. Echocardiogram showed mild aortic insufficiency though preserved
LVEF, no signs of thrombi
Spoke with the patient's oncologist at [facility]. Decided to transition from Eliquis to full dose Lovenox, 1 mg/kg twice daily for presumed Eliquis failure.
Blood pressure was also soft on arrival, in the context of poor oral intake and intravascular depletion. Blood pressures responded to IV fluids, orthostatic vital signs normalized as well. Family concerned about potential for worsening and
recurrence of his low blood pressure. Ordered midodrine 2.5 mg 3 times daily as needed for BP <100/50 mmHg.
Plan to follow-up in office with oncologist shortly after discharge from the hospital. Was scheduled to begin chemotherapy on 07/01/2024 for his metastatic disease. Had to be rescheduled due to his hospitalization.
Discharge Plan
-
Patient Disposition: Home (Routine Discharge)
Discharge Diagnosis/Procedures: Acute multifocal CVA
Brain metastasis from pancreatic cancer
Right upper and lower extremity weakness
Condition: Fair
Diet: No restrictions
Additional Diets: Eat 3 full meals daily, 60+ ounces water intake daily
Activity: As tolerated
Driving Restrictions: No driving for 24 hours
Bathing Restrictions: None
Blood Work: None
Others Tests: None
Other Services: PT and OT
Activity Restrictions/Additional Instructions:
Schedule follow-up appointment with oncologist for early week after discharge
Schedule follow-up appointment with family doctor
Instructions: Stroke
Referrals:
Devendra Pitts MD [Family Provider] -
Additional Discharge Medication Instructions: STOP taking Eliquis. START enoxaparin (Lovenox) injections 100 mg every 12 hours
Monitor home blood pressures. If BP top number <100, or bottom number <50 then give midodrine 2.5 mg at that time. Can be used up to 3 times daily
Prescriptions:
New
enoxaparin 100 mg/mL Syringe
100 mg SC Q12H 30 Days Qty: 60 0RF
midodrine 2.5 mg tablet
2.5 mg PO TID PRN (Reason: Low blood pressure) 30 Days Qty: 60 0RF
Rx Instructions:
Give for SBP < 100 or DBP < 50
Continued
tamsulosin 0.4 MG capsule
0.4 mg PO QPM
finasteride 5 MG tablet
5 mg PO QPM
One Daily Multi-Vit w-Mineral 1 EACH tablet
1 tab PO DAILY
insulin lispro [Humalog KwikPen Insulin] 100 UNIT/ML insulin pen
15 units SC AC
insulin glargine [Lantus U-100 Insulin] 100 unit/mL Solution
25 unit SC BID@1200,1900
aspirin 81 MG tablet,delayed release (DR/EC)
81 mg PO DAILY
metoprolol tartrate 25 MG tablet
25 mg PO BID
atorvastatin [Lipitor] 80 mg Tablet
40 mg PO QPM
acetaminophen [Tylenol] 325 mg Tablet
650 mg PO Q4HPRN PRN (Reason: fever)
Discontinued
Eliquis 5 mg tablet
5 mg PO BID Qty: 60 2RF
Discharge Orders:
Discharge Patient (As Directed); Ordered 07/02/24
Ordered By: Brodie Negrete
Discharge Date and Time
Print Language: SYRIAC
[2024-07-02 11:26] VITALS: BP 95/43
[2024-07-02 12:01] LABS: Glucose - Point of Care 106 mg/dl (70-99)
[2024-07-02] MEDS: LANTUS 0.25 UNITS SC (12:06)
--- NOTE | 2024-07-02 12:12 | CM ---
CM following re: discharge planning.
Reviewed pt's chart, met with pt.
Discharge order noted. Pt is aware and he stated his spouse is coming to transport home. Pt still OBS status, no IMM required.
PT and OT evaluations noted - SNF vs home PT/OT recommended. pt is not eligible for SNF level of care due to OBS status, expressed his agreement with going home with [facility]. pt asked for a wheelchair and per [facility] liaison note, a wheelchair will be
delivered to pt's home.
Please fax discharge instructions to [facility] at [phone]
D/C plan: home with VN and family support. Spouse to transport.
[2024-07-02 12:52] LABS: Glucose - Point of Care 100 mg/dl (70-99)
[2024-07-02 12:58] VITALS: BP 93/43; BP 95/43; PULSE 70; PULSE 72
--- NOTE | 2024-07-04 08:30 | VNURNOTE ---
late entry: lightweight wc docs sent to Luz[facility] at [facility]. Luzmaria confirmed lightwt wc in stock and can be delivered to pt's home today or tomorrow. patient notified.
== END 2024-07-02 13:45 | disposition home health service (06) ==
LOC: 4 EAST ACU 12:58
PROVIDERS: Nurse Practitioner Gerontology; Physician Assistant; ADMITTING PHYSICIAN Internal Medicine; EMERGENCY PHYSICIAN Emergency Medicine; FAMILY PHYSICIAN Internal Medicine; OTHER PHYSICIAN Psychiatry & Neurology Neurology
DX: G81.91 Hemiplegia, unspecified affecting right dominant side (principal); C25.9 Malignant neoplasm of pancreas, unspecified; C78.7 Secondary malignant neoplasm of liver and intrahepatic bile duct; C79.31 Secondary malignant neoplasm of brain; I63.9 Cerebral infarction, unspecified; I95.9 Hypotension, unspecified; E11.9 Type 2 diabetes mellitus without complications; G93.89 Other specified disorders of brain; I10 Essential (primary) hypertension; I25.10 Atherosclerotic heart disease of native coronary artery without angina pectoris; E78.00 Pure hypercholesterolemia, unspecified; R41.82 Altered mental status, unspecified; I48.91 Unspecified atrial fibrillation; R55 Syncope and collapse; D64.9 Anemia, unspecified; N17.9 Acute kidney failure, unspecified; R26.9 Unspecified abnormalities of gait and mobility; E87.1 Hypo-osmolality and hyponatremia; H10.89 Other conjunctivitis; D72.829 Elevated white blood cell count, unspecified; I35.1 Nonrheumatic aortic (valve) insufficiency; R79.89 Other specified abnormal findings of blood chemistry; N40.0 Benign prostatic hyperplasia without lower urinary tract symptoms; G31.9 Degenerative disease of nervous system, unspecified; S50.319A Abrasion of unspecified elbow, initial encounter; W19.XXXA Unspecified fall, initial encounter; Y93.9 Activity, unspecified; Y92.9 Unspecified place or not applicable; Z79.4 Long term (current) use of insulin; Z90.49 Acquired absence of other specified parts of digestive tract; Z79.01 Long term (current) use of anticoagulants; Z79.84 Long term (current) use of oral hypoglycemic drugs; Z95.5 Presence of coronary angioplasty implant and graft; Z87.442 Personal history of urinary calculi; Z87.891 Personal history of nicotine dependence; Z88.8 Allergy status to other drugs, medicaments and biological substances
CPT/HCPCS: 70450; 70553; 80053; 81003; 81015; 82140; 82248; 82607; 82728; 82962; 83540; 83550; 83615; 83735; 85025; 85027; 85045; 85384; 85610; 85730; 87086; 93005; 93306; 96360; 97163; 97167; 99285; A9575; G0378